=== PATIENT | female | born 1935 | race Two or more races ===

== ENCOUNTER 2016-12-02 08:05 | Inpatient (IN) | payer OTHER ==
[~2016-12-02] VITALS: Ht 144.8 cm; Wt 45.4 kg
[2016-12-02] MEDS ORDERED: NS 1000ml 1,400 ML IVLG ONE (08:15)
--- NOTE | 2016-12-02 08:26 | Emergency Room Report ---
History of Present Illness General Chief Complaint: Altered Level of Consciousness Source: Medical Record, EMS, PMD Present Illness HPI 81 YOF BIBEMS from SNF for AMS. Fever at SNF. On trach collar 10L per EMS at SNF. Not hypoxic or hypotensive. 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 Allergies: Coded Allergies: NO KNOWN DRUG ALLERGIES (Verified Allergy, Unknown, 12/02/16) Patient History Past Medical History: DM Past Surgical History: unable to obtain Pertinent Family History: unable to obtain Social History: Denies: alcohol use, drug use, smoking Now: No Immunizations: UTD Reviewed Nursing Documentation: PMH: Agreed, PSxH: Agreed Review of Systems All Other Systems: limited - unable to provide, AMS Physical Exam Vital Signs Date Time Temp Pulse Resp B/P Pulse Ox O2 Delivery O2 Flow Rate FiO2 12/02/16 08:03 101.3 145 24 124/46 93 Trach Collar 5.0 Sp02 EP Interpretation: reviewed, abnormal General Appearance: normal inspection, no apparent distress, cachetic, lethargic, Chronically Ill Head: normocephalic, atraumatic Eyes: bilateral eye EOMI, bilateral eye PERRL ENT: normal ENT inspection, normal pharynx, no angioedema, normal voice Neck: other - Trach collar in place; no air leak. No mucous plugs Respiratory: normal inspection, no respiratory distress, no retraction, no accessory muscle use, no wheezing, crackles Cardiovascular #1: normal peripheral pulses, regular rate, rhythm, no edema, tachycardia Gastrointestinal: normal inspection, normal bowel sounds, non tender, soft, no guarding, no hernia Genitourinary: no CVA tenderness Musculoskeletal: normal inspection, back normal, normal range of motion, Elida' s Sign negative Neurologic: normal inspection, alert, other - Patient intermittently opens eyes but not to command, squeezes right hand on command. Falling to left side in stretcher. Psychiatric: normal inspection Skin: other - breakdown, dry Lymphatic: normal inspection Medical Decision Making Medicare Attestation I Nik Gonzales MD hereby attest that the medical record entry for date of service, 06/05/16 accurately reflects signatures/notations that I made in my capacity as MD when I treated/diagnosed the above listed Medicare beneficiary. I attest that this information is true, accurate and complete to the best of my knowledge. I understand that any falsification, omission, or concealment of material fact may subject me to administrative, civil, or criminal liability. This patient warrants hospital admission for extreme of age and has a condition that cannot be treated as outpatient. Diagnostic Impression: Primary Impression: Altered level of consciousness Additional Impressions: Sepsis Qualified Codes: A41.9 - Sepsis, unspecified organism Pneumonia Qualified Codes: J18.1 - Lobar pneumonia, unspecified organism UTI (urinary tract infection) Qualified Codes: N30.00 - Acute cystitis without hematuria ER Course Altered mental status - Likely d/t infection - SIRS criteria - febrile, tachycardia. - Labs: Leuks 12K. Lactate 2.7. UA also with many WBCs. - Likely source is left sided rhonchi, PNA seen on CXR - Empiric Abx given along with initial bolus 30cc/kg and GA Tylenol - Improved mental status. Moving all extremities, responsive, interacting more - Reviewed chart, patient gets Q6 metoprolol per Gtube. Dose ordered in ED after BP stabilized. Endorsed to Dr Catalan for tele admission at 930am EKG Diagnostic Results Rate: tachycardiac Rhythm: NSR ST Segments: no acute changes ASA given to the pt in ED: No Rhythm Strip Diag. Results EP Interpretation: yes Rate: 148 Rhythm: NSR, no ectopy, other - Multiple PVCS Chest X-Ray Diagnostic Results EP Interpretation: Yes Findings: no pneumothorax, no acute cardiopulmonary disease, other - Left sided PNA Number of Views: 1 Last Vital Signs Date Time Temp Pulse Resp B/P Pulse Ox O2 Delivery O2 Flow Rate FiO2 12/02/16 08:03 101.3 145 24 124/46 93 Trach Collar 5.0 Status: improved Disposition: ADMITTED INPATIENT Condition: Serious NIK GONZALES M.D. Dec 02, 2016 08:26
[2016-12-02 08:28] VITALS: BP 106/48
[2016-12-02] MEDS ORDERED: Acetaminophen 650 MG SUPP RECTAL ONE (08:30)
[2016-12-02] MEDS ORDERED: FLEET ENEMA133 M1 RC (09:00)
[2016-12-02] MEDS ORDERED: FAMOTIDINE20 MG ORAL (09:00)
[2016-12-02] MEDS ORDERED: LEVOTHYROXINE25 MCG GT (09:00)
[2016-12-02] MEDS ORDERED: LOVENOX10 M4 SUBQ (09:00)
[2016-12-02] MEDS ORDERED: LEVETIRACETAM500 MG GT (09:00)
[2016-12-02] MEDS ORDERED: METOPROLOL TART25 MG GT (09:00)
[2016-12-02] MEDS ORDERED: ZINC SULFATE220 M1 GT (09:00)
[2016-12-02] MEDS ORDERED: JANUVIA50 MG GT (09:00)
[2016-12-02] MEDS ORDERED: VITAMIN C500 M1 GT (09:00)
[2016-12-02] MEDS ORDERED: DULCOLAX10 MG RC (09:00)
[2016-12-02] MEDS ORDERED: UTI-STAT L3875 MG/31 GT (09:00)
[2016-12-02] MEDS ORDERED: COLACE100 MG GT (09:00)
[2016-12-02] MEDS ORDERED: PROMOD946 ML GT (09:00)
[2016-12-02] MEDS ORDERED: MILK OF MA400 MG/51 GT (09:00)
[2016-12-02] MEDS ORDERED: ACETAMINOP160 MG/5 M GT (09:00)
[2016-12-02 09:12] LABS: MEAN CORPUSCULAR HGB CONC 32.2 G/DL (32.0-36.0); MEAN CORPUSCULAR VOLUME 87 FL (80-99); MEAN PLATELET VOLUME 7.9 FL (6.5-10.1); PLATELET COUNT 697 K/UL (150-450); RED BLOOD COUNT 2.93 M/UL (4.20-5.40); RED CELL DISTRIBUTION WIDTH 14.9 % (11.6-14.8); WHITE BLOOD COUNT 12.8 K/UL (4.8-10.8)
[2016-12-02 09:17] LABS: ALANINE AMINOTRANSFERASE 11 U/L (3-33); ALBUMIN/GLOBULIN RATIO 0.6 (1.0-2.7); ANION GAP 14 (5-15); ASPARTATE AMINO TRANSFERASE 16 U/L (5-40); CALCIUM 8.4 mg/dL (8.6-10.2); CARBON DIOXIDE 30 mEQ/L (20-30); CHLORIDE 91 mEQ/L (98-107); CREATININE 0.4 mg/dL (0.5-0.9); HEMOLYSIS 0; POTASSIUM 3.7 mEQ/L (3.4-4.9); SODIUM 135 mEQ/L (135-145); TOTAL PROTEIN 6.5 g/dL (6.6-8.7)
[2016-12-02 09:20] LABS: REFLEX LACTIC ACID YES OR NO YES
[2016-12-02 09:24] LABS: APPEARANCE,URINE SLIGHTLY CLOUDY; KETONES,URINE NEGATIVE (NEGATIVE); LEUKOCYTE ESTERASE ,URINE 2+ (NEGATIVE); NITRITE,URINE NEGATIVE (NEGATIVE); PH,URINE 6.5 (4.5-8.0); PROTEIN,URINE 3+ (NEGATIVE); UROBILINOGEN,URINE NORMAL MG/DL (0.0-1.0)
[2016-12-02 09:27] LABS: CKMB 1.7 ng/mL (< 3.8); TROPONIN I < 0.30 ng/mL (<=0.30)
[2016-12-02] MEDS ORDERED: Metoprolol 25mg tab ORAL ONE (09:30)
[2016-12-02 09:35] LABS: BACTERIA,URINE MODERATE /HPF; SQUAMOUS EPITHELIAL CELL,UR MODERATE /LPF (NONE/OCC); WBC,URINE 20-30 /HPF (0 - 2)
[2016-12-02 09:36] LABS: AMORPHOUS SEDIMENT,UR MODERATE /LPF; ICTOTEST NEGATIVE
[2016-12-02 10:09] VITALS: BP 104/46
--- NOTE | 2016-12-02 10:21 | History & Physical ---
History and Physical History & Physicial 81 year old female presents with tachycardia and elevated WBC. Patient admitted for possible sepsis. Patient unable to give any history. Chart reviewed in detail PMH SDH hypothyroid GERD Trach GT Chronic encephalopathy MEDS noted Allergies noted Social History SNF patient; bed bound Physical Exam WDWN NAD chronically ill clear breath sounds bilaterally without rhonchi or wheeze [id number] without MRG NABS nontender no HSM; GT trach no CCE nonfocal decub Laboratory Tests Test 12/02/16 08:37 12/02/16 09:00 White Blood Count 12.8 K/UL (4.8-10.8) H Red Blood Count 2.93 M/UL (4.20-5.40) L Hemoglobin 8.2 G/DL (12.0-16.0) L Hematocrit 25.5 % (37.0-47.0) L Mean Corpuscular Volume 87 FL (80-99) Mean Corpuscular Hemoglobin 28.0 PG (27.0-31.0) Mean Corpuscular Hemoglobin Concent 32.2 G/DL (32.0-36.0) Red Cell Distribution Width 14.9 % (11.6-14.8) H Platelet Count 697 K/UL (150-450) H Mean Platelet Volume 7.9 FL (6.5-10.1) Neutrophils (%) (Auto) % (45.0-75.0) Lymphocytes (%) (Auto) % (20.0-45.0) Monocytes (%) (Auto) % (1.0-10.0) Eosinophils (%) (Auto) % (0.0-3.0) Basophils (%) (Auto) % (0.0-2.0) Neutrophils % (Manual) Pending Lymphocytes % (Manual) Pending Platelet Estimate Pending Platelet Morphology Pending Sodium Level 135 mEQ/L (135-145) Potassium Level 3.7 mEQ/L (3.4-4.9) Chloride Level 91 mEQ/L (98-107) L Carbon Dioxide Level 30 mEQ/L (20-30) Anion Gap 14 (5-15) Blood Urea Nitrogen 21 mg/dL (7-23) Creatinine 0.4 mg/dL (0.5-0.9) L Estimat Glomerular Filtration Rate mL/min (>60) Glucose Level 123 mg/dL (74-106) H Lactic Acid Level 2.70 mmol/L (0.66-2.22) H Calcium Level 8.4 mg/dL (8.6-10.2) L Total Bilirubin 0.4 mg/dL (0.0-1.2) Aspartate Amino Transf (AST/SGOT) 16 U/L (5-40) Alanine Aminotransferase (ALT/SGPT) 11 U/L (3-33) Alkaline Phosphatase 122 U/L (35-104) H Total Creatine Kinase 37 U/L (26-140) Creatine Kinase MB 1.7 ng/mL (< 3.8) Creatine Kinase MB Relative Index 4.5 Troponin I < 0.30 ng/mL (<=0.30) Pro-B-Type Natriuretic Peptide 764 pg/mL (0-450) H Total Protein 6.5 g/dL (6.6-8.7) L Albumin 2.5 g/dL (3.5-5.2) L Globulin 4.0 g/dL Albumin/Globulin Ratio 0.6 (1.0-2.7) L Urine Color Gertrude Urine Appearance Slightly cloudy Urine pH 6.5 (4.5-8.0) Urine Specific [place] 1.015 (1.005-1.035) Urine Protein 3+ (NEGATIVE) H Urine Glucose (UA) Negative (NEGATIVE) Urine Ketones Negative (NEGATIVE) Urine Occult Blood 3+ (NEGATIVE) H Urine Nitrite Negative (NEGATIVE) Urine Bilirubin Negative (NEGATIVE) Urine Ictotest Negative Urine Urobilinogen Normal MG/DL (0.0-1.0) Urine Leukocyte Esterase 2+ (NEGATIVE) H Urine RBC 5-10 /HPF (0 - 2) H Urine WBC 20-30 /HPF (0 - 2) H Urine Squamous Epithelial Cells Moderate /LPF (NONE/OCC) H Urine Amorphous Sediment Moderate /LPF (NONE) H Urine Bacteria Moderate /HPF (NONE) H IMPRESSION possible sepsis leukocytosis ALOC chronic encephalopathy Chronic respiratory Pressure ulcer PLAN care noted IV antibiotics wound care oxygen therapy nutrition stabilize and dc to SNF when stable impression, plan, and exam edited and reviewed in detail care discussed with HARIS ARANGO Dec 02, 2016 10:21
--- NOTE | 2016-12-02 10:32 | Diagnostic Imaging Report ---
Indication: Dyspnea Comparison: None A single view chest radiograph was obtained. Findings: Peribronchial cuffing, prominent pulmonary vascularity and interstitium with some mild volar or space disease noted centrally within both lungs consistent with pulmonary edema. Hazy basilar opacities enlarged heart noted. Bones are osteopenic. IVC filter noted. Impression: Pulmonary edema
[2016-12-02 10:40] LABS: BAND NEUTROPHILS % (MANUAL) 10 % (0-8); BASOPHILS % (MANUAL) 0 % (0-2); EOSINOPHILS % (MANUAL) 0 % (0-3); LYMPHOCYTES % (MANUAL) 16 % (20-45); NEUTROPHILS % (MANUAL) 73 % (45-75); PLATELET ESTIMATE INCREASED; TOTAL CELLS COUNTED 100
[2016-12-02 10:41] LABS: ANISOCYTOSIS 1+; HYPOCHROMASIA 1+; PLATELET MORPHOLOGY NORMAL
[2016-12-02 11:42] VITALS: BP 91/39
[2016-12-02 11:58] LABS: REFLEX LACTIC ACID YES OR NO YES
[2016-12-02 12:55] VITALS: BP 89/51
[2016-12-02 15:57] VITALS: BP 94/54
[2016-12-02] MEDS ORDERED: Fleet's Enema 133ml RECTAL PRN (16:00)
[2016-12-02] MEDS ORDERED: Vancomycin 750mg/D5W 275ml IVPB ONE ×2 (18:00)
[2016-12-02 20:00] VITALS: BP 103/57
[2016-12-02] MEDS ORDERED: Heparin 5000 units/ml inj SUBQ SCH (21:00)
[2016-12-02] MEDS: Metoprolol 25mg tab GT SCH (21:00)
[2016-12-02] MEDS: levETIRAcetam 500mg/5ml Liquid GT SCH (21:09)
[2016-12-02] MEDS: Piperacillin/Tazobactam 3.375 GM in D5W 110 ML IVPB SCH (23:03)
[2016-12-03 00:31] VITALS: BP 108/55
[2016-12-03 03:47] VITALS: BP 122/58
[2016-12-03] MEDS: Piperacillin/Tazobactam 3.375 GM in D5W 110 ML IVPB SCH ×3 (05:04→21:47)
[2016-12-03 07:16] LABS: MEAN CORPUSCULAR HEMOGLOBIN 28.8 PG (27.0-31.0); MEAN CORPUSCULAR HGB CONC 33.4 G/DL (32.0-36.0); MEAN CORPUSCULAR VOLUME 86 FL (80-99); MEAN PLATELET VOLUME 8.3 FL (6.5-10.1); PLATELET COUNT 567 K/UL (150-450); RED BLOOD COUNT 2.51 M/UL (4.20-5.40); RED CELL DISTRIBUTION WIDTH 15.2 % (11.6-14.8); WHITE BLOOD COUNT 18.2 K/UL (4.8-10.8)
[2016-12-03 07:33] LABS: ANION GAP 13 (5-15); CALCIUM 8.1 mg/dL (8.6-10.2); CARBON DIOXIDE 26 mEQ/L (20-30); CHLORIDE 97 mEQ/L (98-107); CREATININE 0.3 mg/dL (0.5-0.9); HEMOLYSIS 1; POTASSIUM 3.1 mEQ/L (3.4-4.9); SODIUM 136 mEQ/L (135-145)
[2016-12-03 07:47] VITALS: BP 119/57
--- NOTE | 2016-12-03 08:50 | General Progress Note ---
Assessment/Plan Assessment/Plan IMPRESSION possible sepsis leukocytosis ALOC chronic encephalopathy Chronic respiratory Pressure ulcer tachycardia PLAN care noted IV antibiotics add amikacin transfuse replace K wound care oxygen therapy nutrition stabilize and dc to SNF when stable impression, plan, and exam edited and reviewed in detail care discussed with RN Subjective Allergies: Coded Allergies: NO KNOWN DRUG ALLERGIES (Verified Allergy, Unknown, 12/02/16) Subjective anemic tachycardic Objective Last 24 Hour Vital Signs Date Time Temp Pulse Resp B/P Pulse Ox O2 Delivery O2 Flow Rate FiO2 12/03/16 07:47 99.7 125 22 119/57 94 Trach Collar 6.0 12/03/16 07:45 T-piece 6.0 35 12/03/16 04:00 135 12/03/16 03:47 97.7 135 20 122/58 91 Trach Collar 12/03/16 00:31 97.2 104 18 108/55 94 Trach Collar 12/03/16 00:00 131 12/02/16 23:38 98 T-piece 6.0 35 12/02/16 23:38 T-piece 6.0 35 12/02/16 21:00 121 103/57 12/02/16 20:00 125 12/02/16 20:00 97.7 121 18 103/57 97 T-piece 5.0 12/02/16 16:00 109 12/02/16 15:57 97.7 111 26 94/54 100 T-piece 5.0 12/02/16 12:55 98.2 110 24 89/51 100 T-piece 5.0 12/02/16 12:49 112 12/02/16 12:12 110 26 95/42 100 T-piece 5.0 12/02/16 11:42 98.3 111 26 91/39 98 T-piece 5.0 12/02/16 10:09 101.2 119 31 104/46 96 T-piece 5.0 12/02/16 10:09 101.2 12/02/16 09:44 141 127/49 Intake and Output 12/02/16 12/03/16 19:00 07:00 Intake Total 1670 ml 1000 ml Output Total 230 ml 300 ml Balance 1440 ml 700 ml Intake Free Water 120 ml IV Total 1550 ml 1000 ml Output Urine Total 230 ml 300 ml # Bowel Movements 5 Laboratory Tests 12/02/16 09:00: Urine Color Gertrude, Urine Appearance Slightly cloudy, Urine pH 6.5, Urine Specific [place] 1.015, Urine Protein 3+H, Urine Glucose (UA) Negative, Urine Ketones Negative, Urine Occult Blood 3+H, Urine Nitrite Negative, Urine Bilirubin Negative, Urine Ictotest Negative, Urine Urobilinogen Normal, Urine Leukocyte Esterase 2+H, Urine RBC 5-10H, Urine WBC 20-30H, Urine Squamous Epithelial Cells ModerateH, Urine Amorphous Sediment ModerateH, Urine Bacteria ModerateH 12/02/16 11:20: Lactic Acid Level 2.40H 12/03/16 05:45: White Blood Count 18.2H, Red Blood Count 2.51L, Hemoglobin 7.2L, Hematocrit 21.6L, Mean Corpuscular Volume 86, Mean Corpuscular Hemoglobin 28.8, Mean Corpuscular Hemoglobin Concent 33.4, Red Cell Distribution Width 15.2H, Platelet Count 567H, Mean Platelet Volume 8.3, Neutrophils (%) (Auto) , Lymphocytes (%) (Auto) , Monocytes (%) (Auto) , Eosinophils (%) (Auto) , Basophils (%) (Auto) , Neutrophils % (Manual) [Pending], Lymphocytes % (Manual) [Pending], Platelet Estimate [Pending], Platelet Morphology [Pending], Sodium Level 136, Potassium Level 3.1L, Chloride Level 97L, Carbon Dioxide Level 26, Anion Gap 13, Blood Urea Nitrogen 15, Creatinine 0.3L, Estimat Glomerular Filtration Rate , Glucose Level 142H, Calcium Level 8.1L Height (Feet): 4 Height (Inches): 9.00 Weight (Pounds): 100 Objective WDWN poor LOc clear breath sounds bilaterally without rhonchi or wheeze S1S2 tachy RR without MRG NABS nontender no HSM; GT no CCE nonfocal decub HARIS ACEVEDO Dec 03, 2016 08:50
[2016-12-03] MEDS ORDERED: KCl 10% 40mEq/30ml liquid GT ONE (09:00)
[2016-12-03] MEDS ORDERED: Amikacin Rx to dose MISC PRN (09:00)
[2016-12-03] MEDS ORDERED: Metoprolol 25mg tab GT SCH (09:00)
[2016-12-03] MEDS: Milk of Magnesia 30ml Ud GT SCH (09:00)
[2016-12-03] MEDS: sitaGLIPtin 50mg tab GT SCH (09:18)
[2016-12-03] MEDS: levETIRAcetam 500mg/5ml Liquid GT SCH ×2 (09:18→21:49)
[2016-12-03] MEDS: Docusate 100mg/10ml Liq ORAL SCH (09:18)
[2016-12-03] MEDS: Ascorbic Acid 500mg tab GT SCH (09:19)
[2016-12-03] MEDS: Zinc Sulfate 220mg cap GT SCH (09:19)
[2016-12-03] MEDS: Levothyroxine 25mcg tab GT SCH (09:19)
[2016-12-03] MEDS: Enoxaparin 30mg Inj SUBQ SCH (09:20)
[2016-12-03] MEDS: Metoprolol 25mg tab GT SCH ×4 (10:26→21:49)
[2016-12-03 10:42] LABS: BAND NEUTROPHILS % (MANUAL) 30 % (0-8); BASOPHILS % (MANUAL) 0 % (0-2); EOSINOPHILS % (MANUAL) 1 % (0-3); LYMPHOCYTES % (MANUAL) 10 % (20-45); NEUTROPHILS % (MANUAL) 57 % (45-75); PLATELET ESTIMATE INCREASED; PLATELET MORPHOLOGY NORMAL; TOTAL CELLS COUNTED 100
[2016-12-03 10:43] LABS: ANISOCYTOSIS 2+; HYPOCHROMASIA 2+
[2016-12-03] MEDS ORDERED: AMIKACIN IV ONE (11:00)
[2016-12-03] MEDS ORDERED: NS IV ONE (11:00)
[2016-12-03 11:19] VITALS: BP 117/66
--- NOTE | 2016-12-03 11:51 | Diagnostic Imaging Report ---
Indication: Dyspnea Comparison: 12/02/16 A single view chest radiograph was obtained. Findings: There are bilateral pleural effusions present. There is interstitial edema and cardiomegaly present. Bones are osteopenic. Tracheostomy noted. Impression: Pulmonary edema and bilateral pleural effusions
[2016-12-03 15:23] VITALS: BP 135/65
[2016-12-03] MEDS: Vancomycin 500mg/D5W 110ml IVPB SCH ×2 (18:00)
[2016-12-03 21:22] VITALS: BP 123/71
[2016-12-04] VITALS: BP 126/72
[2016-12-04 04:00] VITALS: BP 144/81
[2016-12-04] MEDS: Piperacillin/Tazobactam 3.375 GM in D5W 110 ML IVPB SCH ×3 (06:00→22:00)
[2016-12-04 08:00] VITALS: BP 140/72
[2016-12-04 08:07] LABS: MEAN CORPUSCULAR HEMOGLOBIN 28.3 PG (27.0-31.0); MEAN CORPUSCULAR HGB CONC 33.6 G/DL (32.0-36.0); MEAN CORPUSCULAR VOLUME 84 FL (80-99); MEAN PLATELET VOLUME 8.1 FL (6.5-10.1); PLATELET COUNT 517 K/UL (150-450); RED CELL DISTRIBUTION WIDTH 14.3 % (11.6-14.8); WHITE BLOOD COUNT 21.6 K/UL (4.8-10.8)
[2016-12-04 08:18] LABS: ANION GAP 13 (5-15); CALCIUM 7.9 mg/dL (8.6-10.2); CARBON DIOXIDE 25 mEQ/L (20-30); CHLORIDE 97 mEQ/L (98-107); CREATININE 0.3 mg/dL (0.5-0.9); HEMOLYSIS 0; POTASSIUM 3.4 mEQ/L (3.4-4.9); SODIUM 135 mEQ/L (135-145)
--- NOTE | 2016-12-04 08:45 | General Progress Note ---
Assessment/Plan Assessment/Plan IMPRESSION possible sepsis leukocytosis ALOC chronic encephalopathy Chronic respiratory Pressure ulcer tachycardia PLAN care noted IV antibiotics ID evaluation added amikacin and sensitive transfused replaced K wound care oxygen therapy nutrition stabilize and dc to SNF when stable impression, plan, and exam edited and reviewed in detail care discussed with RN Subjective Allergies: Coded Allergies: NO KNOWN DRUG ALLERGIES (Verified Allergy, Unknown, 12/02/16) Subjective anemic tachycardic leukocytosis Objective Last 24 Hour Vital Signs Date Time Temp Pulse Resp B/P Pulse Ox O2 Delivery O2 Flow Rate FiO2 12/04/16 04:00 122 12/04/16 04:00 97.3 125 20 144/81 94 T-piece 8.0 30 12/04/16 01:30 93 T-piece 8.0 30 12/04/16 01:30 T-piece 8.0 30 12/04/16 00:00 123 12/04/16 00:00 98.6 117 20 126/72 91 Trach Collar 6.0 35 12/03/16 21:49 129 123/71 12/03/16 21:22 99.0 129 20 123/71 91 Trach Collar 6.0 35 12/03/16 20:00 127 12/03/16 19:30 130 20 T-piece 8.0 30 12/03/16 19:30 92 T-piece 8.0 30 12/03/16 19:30 T-piece 8.0 30 12/03/16 16:00 109 12/03/16 15:23 99.1 107 21 135/65 93 Trach Collar 12/03/16 15:05 T-piece 6.0 35 12/03/16 12:00 108 12/03/16 11:19 99.7 105 22 117/66 95 Trach Collar 12/03/16 10:26 128 119/65 Intake and Output 12/03/16 12/04/16 19:00 07:00 Intake Total 700 ml Output Total 350 ml Balance 350 ml IV Total 700 ml Output Urine Total 350 ml # Bowel Movements 1 Laboratory Tests 12/04/16 00:30: Random Amikacin Level 1.6 12/04/16 07:15: White Blood Count 21.6H, Red Blood Count 3.90L, Hemoglobin 11.0#L, Hematocrit 32.9#L, Mean Corpuscular Volume 84, Mean Corpuscular Hemoglobin 28.3, Mean Corpuscular Hemoglobin Concent 33.6, Red Cell Distribution Width 14.3, Platelet Count 517H, Mean Platelet Volume 8.1, Neutrophils (%) (Auto) , Lymphocytes (%) ( Auto) , Monocytes (%) (Auto) , Eosinophils (%) (Auto) , Basophils (%) (Auto) , Neutrophils % (Manual) [Pending], Lymphocytes % (Manual) [Pending], Platelet Estimate [Pending], Platelet Morphology [Pending], Sodium Level 135, Potassium Level 3.4, Chloride Level 97L, Carbon Dioxide Level 25, Anion Gap 13, Blood Urea Nitrogen 9, Creatinine 0.3L, Estimat Glomerular Filtration Rate , Glucose Level 175H, Calcium Level 7.9L Height (Feet): 4 Height (Inches): 9.00 Weight (Pounds): 100 Objective WDWN poor LOc clear breath sounds bilaterally without rhonchi or wheeze S1S2 tachy RR without MRG NABS nontender no HSM; GT no CCE nonfocal decub HARIS ACEVEDO Dec 04, 2016 08:44
[2016-12-04] MEDS: Metoprolol 25mg tab GT SCH ×2 (09:31→21:20)
[2016-12-04] MEDS: Zinc Sulfate 220mg cap GT SCH (09:31)
[2016-12-04] MEDS: sitaGLIPtin 50mg tab GT SCH (09:31)
[2016-12-04] MEDS: Levothyroxine 25mcg tab GT SCH (09:31)
[2016-12-04] MEDS: levETIRAcetam 500mg/5ml Liquid GT SCH ×2 (09:32→21:20)
[2016-12-04] MEDS: Milk of Magnesia 30ml Ud GT SCH (09:32)
[2016-12-04] MEDS: Ascorbic Acid 500mg tab GT SCH (09:32)
[2016-12-04] MEDS: Docusate 100mg/10ml Liq ORAL SCH (09:32)
[2016-12-04] MEDS: Enoxaparin 30mg Inj SUBQ SCH (09:33)
[2016-12-04 10:06] LABS: ANISOCYTOSIS 1+; BAND NEUTROPHILS % (MANUAL) 0 % (0-8); BASOPHILS % (MANUAL) 0 % (0-2); EOSINOPHILS % (MANUAL) 0 % (0-3); HYPOCHROMASIA 1+; LYMPHOCYTES % (MANUAL) 8 % (20-45); NEUTROPHILS % (MANUAL) 85 % (45-75); PLATELET ESTIMATE INCREASED; PLATELET MORPHOLOGY NORMAL; TOTAL CELLS COUNTED 100
[2016-12-04 11:00] LABS: OTHERS PATHOLOGIST COMMENT
[2016-12-04] MEDS ORDERED: Sterile Water Irrig 1000ml IRRIG ONE (11:20)
[2016-12-04] MEDS ORDERED: NS 275ml ONE (11:20)
[2016-12-04] MEDS ORDERED: Tubing IV Secondary IV ONE (11:20)
[2016-12-04] MEDS ORDERED: Tubing Blood Filter IV ONE (11:20)
[2016-12-04 11:37] VITALS: BP 140/80
[2016-12-04] MEDS ORDERED: AMIKACIN IV SCH (12:30)
[2016-12-04] MEDS ORDERED: NS IV SCH (12:30)
--- NOTE | 2016-12-04 15:01 | Wound Care Consultation ---
Wound Assessment Wound Assessment #1: Wound Present on Admission: Yes New Wound: No Status Change of Wound: No Wound Location Body Site Modif: mid Wound Location Body Site: sacral Wound Type: pressure ulcer Phil Test: Does not Phil Pressure Ulcer Stage: IV/unstageable Wound Thickness: Full Thickness Wound Length: 4.5 Wound Width: 6.5 Wound Depth: utd Percent of Wound [place]/Red: 20 Percent of Wound Bed Yellow/Wh: 80 Wound Drainage Amount: Moderate Wound Drainage Odor: None/Absent Tissue Surrounding Wound: Macerated Wound General Appearance: Reddened, Draining, Necrotic Wound Assessment #2: Wound Number: #2 Wound Present on Admission: Yes New Wound: No Status Change of Wound: No Wound Location Body Site Modif: mid Wound Location Body Site: other - spine Wound Type: pressure ulcer Phil Test: Does not Phil Pressure Ulcer Stage: IV/unstageable Wound Thickness: Full Thickness Wound Length: 2.5 Wound Width: 2.5 Wound Depth: utd Percent of Wound [place]/Red: 50 Percent of Wound Bed Yellow/Wh: 50 Wound Drainage Description: Serosanguineous Wound Drainage Amount: Moderate Wound Drainage Odor: None/Absent Tissue Surrounding Wound: Macerated Wound General Appearance: Reddened, Draining Wound Comment #1 Sacral unstageable pressure ulcer with yellow slough adhered to wound bed #2 Mid spine unstageable pressure ulcer with yellow slough adhered to wound bed Recommendation -Sacral and mid spine pressure ulcers Cleanse with saline, pat dry, apply Therahoney gel to wound bed, apply Triad cream to mazin wound area, cover with Biatain silicone daily and PRN soiled/ dislodged -Low air loss mattress -Keep clean and dry -Turn and reposition -Optimize nutrition -Offload both heels -Heel protector on both heels -Assess and F/u accordingly for any changes CEDRIC HIDALGO RN Dec 04, 2016 15:01
[2016-12-04 16:00] VITALS: BP 138/86
[2016-12-04] MEDS: Vancomycin 500mg/D5W 110ml IVPB SCH ×2 (17:55)
[2016-12-04 20:00] VITALS: BP 158/85
[2016-12-04] MEDS ORDERED: Vancomycin 500mg/D5W 110ml IVPB ONE ×2 (20:00)
[2016-12-04] MEDS: Acetaminophen 650mg/20.3ml GT PRN (21:21)
[2016-12-05] VITALS (9 sets, daily range): BP systolic 117–159; BP diastolic 71–106
--- NOTE | 2016-12-05 00:45 | Consultation ---
DATE OF CONSULTATION: 12/04/2016 NOTE: POOR AUDIO INFECTIOUS DISEASE CONSULTATION This consult is for coverage of Dr. Stringer. PRIMARY ATTENDING PHYSICIAN: Dr. Santos Catalan. REASON FOR CONSULT: Sepsis and UTI. HISTORY OF PRESENT ILLNESS: The patient is an 81-year-old female admitted on 12/02/2016 from a [place] [facility] facility because of altered mental status, had tachycardia, leukocytosis, and fever. At the time of admission, had temperature of 104.3 degrees. The patient is not a historian. PAST MEDICAL HISTORY: Significant for hypothyroidism. The patient is status post fall and has history of subdural hemorrhage. She had tracheostomy, anemia, sacral pressure ulcer, epilepsy, status post G-tube placement. MEDICATIONS: Amikacin, vancomycin, metoprolol, vitamin C, Colace, Lovenox,Zosyn, Januvia, Zinc, Zosyn, Keppra, Ambien, sodium chloride, Mylanta, and bisacodyl. ALLERGIES: No known drug allergy. SOCIAL HISTORY: She lives in a nursing facility with poor mental and functional status per son. REVIEW OF SYSTEMS: Unobtainable. PHYSICAL EXAMINATION: GENERAL APPEARANCE: The patient seems to be thin. VITAL SIGNS: Temperature is 96.4 degrees, T-max at the time of admission is 104.3 degrees, pulse 66, and blood pressure 140/72. HEAD AND NECK: Status post tracheostomy. Tucker conjunctivae. HEART: Regular. Normal rate. LUNGS: Bilateral rhonchi. The patient is on T bar. ABDOMEN: Soft. s/p GT. EXTREMITIES: She has no edema. She has muscle atrophy. LABORATORY AND DIAGNOSTIC DATA: WBC going up, hemoglobin 11, hematocrit 32.9 and platelets 517,000. Sodium 135, potassium 3.4, chloride 97, bicarbonate 25, BUN 9, creatinine 0.6, and glucose is 175. Lactic acid is 2.4. VRE screen is positive. Influenza test is negative. Blood culture x2 negative. Urine culture grew Klebsiella pneumoniae and other gram-negative rods. Urinalysis showed WBC of 20 to 30, RBC of 5 to 10, protein 3+, nitrite negative. IMPRESSION: 1. Sepsis with high fever, leukocytosis, and tachycardia. Fever and tachycardia, which are resolved. Second source of infection seems to be urinary tract infection. The patient has chronic Thompson catheter. sacral pressure ulcer. 2. Encephalopathy. 3. Vancomycin-resistant enterococci colonization. 4. Anemia, had blood transfusion. 5. History of subdural hematoma. 6. Bilateral effusion and pulmonary edema on chest x-ray. RECOMMENDATION: We will continue with vancomycin and Zosyn. We will start amikacin. We will follow up the cultures. I thank Dr. Catalan for involving me in the care of this patient. Patric Adams M.D. DR: SANTIAGO JOB#: [id number] CC: RADHA
[2016-12-05] MEDS: Zolpidem 5mg tab ORAL PRN ×2 (01:59→22:11)
[2016-12-05] MEDS: Piperacillin/Tazobactam 3.375 GM in D5W 110 ML IVPB SCH ×3 (05:59→23:00)
[2016-12-05 08:11] LABS: MEAN CORPUSCULAR HEMOGLOBIN 27.9 PG (27.0-31.0); MEAN CORPUSCULAR VOLUME 84 FL (80-99); MEAN PLATELET VOLUME 8.3 FL (6.5-10.1); PLATELET COUNT 566 K/UL (150-450); RED BLOOD COUNT 4.35 M/UL (4.20-5.40); RED CELL DISTRIBUTION WIDTH 14.5 % (11.6-14.8)
[2016-12-05 08:17] LABS: WHITE BLOOD COUNT 26.2 K/UL (4.8-10.8)
[2016-12-05 08:30] LABS: ANION GAP 14 (5-15); CALCIUM 8.1 mg/dL (8.6-10.2); CARBON DIOXIDE 28 mEQ/L (20-30); CHLORIDE 97 mEQ/L (98-107); CREATININE 0.3 mg/dL (0.5-0.9); HEMOLYSIS 0; POTASSIUM 3.1 mEQ/L (3.4-4.9); SODIUM 139 mEQ/L (135-145)
--- NOTE | 2016-12-05 08:31 | General Progress Note ---
Assessment/Plan Assessment/Plan IMPRESSION possible sepsis leukocytosis ALOC chronic encephalopathy Chronic respiratory Pressure ulcer tachycardia PLAN care noted DNR IV antibiotics ID evaluation noted added amikacin start digoxin wound care oxygen therapy nutrition stabilize and dc to SNF when stable impression, plan, and exam edited and reviewed in detail care discussed with RN Subjective ROS Limited/Unobtainable: Yes Allergies: Coded Allergies: NO KNOWN DRUG ALLERGIES (Verified Allergy, Unknown, 12/02/16) Subjective d/w family confirmed DNR aware of poor prognosis Objective Last 24 Hour Vital Signs Date Time Temp Pulse Resp B/P Pulse Ox O2 Delivery O2 Flow Rate FiO2 12/05/16 07:55 T-piece 10.0 40 12/05/16 07:54 94 T-piece 10.0 40 12/05/16 07:51 138 25 T-piece 10.0 40 12/05/16 04:00 117 12/05/16 04:00 97.9 100 20 122/75 94 Mechanical Ventilator 12/05/16 01:00 T-piece 10.0 35 12/05/16 00:59 95 T-piece 10.0 35 12/05/16 00:00 101 12/05/16 00:00 97.5 101 20 120/71 100 T-piece 10.0 35 12/04/16 21:20 133 158/85 12/04/16 20:00 98.1 133 20 158/85 100 12/04/16 20:00 133 12/04/16 19:30 120 20 T-piece 10.0 35 12/04/16 19:30 94 T-piece 10.0 35 12/04/16 19:30 T-piece 10.0 35 12/04/16 16:00 97.8 112 23 138/86 T-piece 40 12/04/16 16:00 127 12/04/16 13:04 96 T-piece 8.0 40 12/04/16 13:04 T-piece 8.0 40 12/04/16 12:00 112 12/04/16 11:37 98.2 111 22 140/80 96 T-piece 40 12/04/16 09:31 66 140/72 12/04/16 08:50 T-piece 8.0 40 12/04/16 08:49 94 T-piece 8.0 40 12/04/16 08:49 66 24 T-piece 8.0 40 Intake and Output 12/04/16 12/05/16 19:00 07:00 Intake Total 2222.5 ml 447.5 ml Output Total 1200 ml 1600 ml Balance 1022.5 ml -1152.5 ml Intake Free Water 120 ml IV Total 1502.5 ml 447.5 ml Tube Feeding 600 ml Output Urine Total 1200 ml 1600 ml # Bowel Movements 2 Laboratory Tests 12/04/16 17:00: Vancomycin Level Trough < 2.0L 12/05/16 07:40: White Blood Count 26.2*H, Red Blood Count 4.35, Hemoglobin 12.1, Hematocrit 36.7L, Mean Corpuscular Volume 84, Mean Corpuscular Hemoglobin 27.9, Mean Corpuscular Hemoglobin Concent 33.0, Red Cell Distribution Width 14.5, Platelet Count 566H, Mean Platelet Volume 8.3, Neutrophils (%) (Auto) , Lymphocytes (%) ( Auto) , Monocytes (%) (Auto) , Eosinophils (%) (Auto) , Basophils (%) (Auto) , Neutrophils % (Manual) [Pending], Lymphocytes % (Manual) [Pending], Platelet Estimate [Pending], Platelet Morphology [Pending], Sodium Level [Pending], Potassium Level [Pending], Chloride Level [Pending], Carbon Dioxide Level [ Pending], Blood Urea Nitrogen [Pending], Creatinine [Pending], Estimat Glomerular Filtration Rate [Pending], Glucose Level [Pending], Calcium Level [ Pending] Height (Feet): 4 Height (Inches): 9.00 Weight (Pounds): 100 Objective WDWN poor LOc reduced breath sounds bilaterally with some rhonchi S1S2 tachy RR without MRG NABS nontender no HSM; GT no CCE nonfocal decub HARIS ACEVEDO Dec 05, 2016 08:31
[2016-12-05] MEDS: Docusate 100mg/10ml Liq ORAL SCH (08:37)
[2016-12-05] MEDS: sitaGLIPtin 50mg tab GT SCH (08:38)
[2016-12-05] MEDS: Zinc Sulfate 220mg cap GT SCH (08:38)
[2016-12-05] MEDS: Metoprolol 25mg tab GT SCH (08:38)
[2016-12-05] MEDS: Levothyroxine 25mcg tab GT SCH (08:38)
[2016-12-05] MEDS: Ascorbic Acid 500mg tab GT SCH (08:38)
[2016-12-05] MEDS: Milk of Magnesia 30ml Ud GT SCH (08:38)
[2016-12-05] MEDS: levETIRAcetam 500mg/5ml Liquid GT SCH ×2 (08:39→21:00)
[2016-12-05] MEDS: Enoxaparin 30mg Inj SUBQ SCH (08:42)
[2016-12-05] MEDS: Digoxin 0.125mg tab ORAL SCH (08:42)
[2016-12-05] MEDS ORDERED: KCl 10% 40mEq/30ml liquid NG ONE (10:00)
[2016-12-05 10:10] LABS: ANISOCYTOSIS 1+; BAND NEUTROPHILS % (MANUAL) 0 % (0-8); BASOPHILS % (MANUAL) 0 % (0-2); EOSINOPHILS % (MANUAL) 0 % (0-3); HYPOCHROMASIA 1+; LYMPHOCYTES % (MANUAL) 7 % (20-45); NEUTROPHILS % (MANUAL) 88 % (45-75); PLATELET ESTIMATE INCREASED; PLATELET MORPHOLOGY NORMAL; TOTAL CELLS COUNTED 100
--- NOTE | 2016-12-05 11:20 | Infectious Diseases Prog Note ---
"Assessment/Plan Assessment/Plan antibiotics : vancomycin iv, zosyn A 1. pneumonia 2. respiratory failure 3. leucocytosis worse 4. e.coli | klebsiella UTI 5. rectal VRE colonization P 1. continue vancomycin iv, zosyn 2. sputum culture 3. stool for c.diff 4. start flagyl Subjective ROS Limited/Unobtainable: Yes Allergies: Coded Allergies: NO KNOWN DRUG ALLERGIES (Verified Allergy, Unknown, 12/02/16) Objective Vital Signs Last 24 Hour Vital Signs Date Time Temp Pulse Resp B/P Pulse Ox O2 Delivery O2 Flow Rate FiO2 12/05/16 08:42 129 12/05/16 08:38 129 151/82 12/05/16 08:00 125 12/05/16 08:00 98.8 129 20 151/82 96 T-piece 12/05/16 07:55 T-piece 10.0 40 12/05/16 07:54 94 T-piece 10.0 40 12/05/16 07:51 138 25 T-piece 10.0 40 12/05/16 04:00 117 12/05/16 04:00 97.9 100 20 122/75 94 Mechanical Ventilator 12/05/16 01:00 T-piece 10.0 35 12/05/16 00:59 95 T-piece 10.0 35 12/05/16 00:00 101 12/05/16 00:00 97.5 101 20 120/71 100 T-piece 10.0 35 12/04/16 21:20 133 158/85 12/04/16 20:00 98.1 133 20 158/85 100 12/04/16 20:00 133 12/04/16 19:30 120 20 T-piece 10.0 35 12/04/16 19:30 94 T-piece 10.0 35 12/04/16 19:30 T-piece 10.0 35 12/04/16 16:00 97.8 112 23 138/86 T-piece 40 12/04/16 16:00 127 12/04/16 13:04 96 T-piece 8.0 40 12/04/16 13:04 T-piece 8.0 40 12/04/16 12:00 112 12/04/16 11:37 98.2 111 22 140/80 96 T-piece 40 Height (Feet): 4 Height (Inches): 9.00 Weight (Pounds): 100 HEENT: status post trach Respiratory/Chest: crackles/rales Cardiovascular: normal rate, regular rhythm, no gallop/murmur Abdomen: soft, non tender, other - GT Extremities: no edema Microbiology Date/Time Source Procedure Growth Status 12/02/16 11:30 Nasal Nares MRSA Culture - Final NO METHICILLIN RESISTANT STAPH AUREUS... Complete 12/02/16 11:30 Rectum VRE Culture - Final Enterococcus Faecalis - Vre Complete Laboratory Tests Test 12/04/16 17:00 12/05/16 07:40 Vancomycin Level Trough < 2.0 ug/mL (5.0-12.0) L White Blood Count 26.2 K/UL (4.8-10.8) *H Red Blood Count 4.35 M/UL (4.20-5.40) Hemoglobin 12.1 G/DL (12.0-16.0) Hematocrit 36.7 % (37.0-47.0) L Mean Corpuscular Volume 84 FL (80-99) Mean Corpuscular Hemoglobin 27.9 PG (27.0-31.0) Mean Corpuscular Hemoglobin Concent 33.0 G/DL (32.0-36.0) Red Cell Distribution Width 14.5 % (11.6-14.8) Platelet Count 566 K/UL (150-450) H Mean Platelet Volume 8.3 FL (6.5-10.1) Neutrophils (%) (Auto) % (45.0-75.0) Lymphocytes (%) (Auto) % (20.0-45.0) Monocytes (%) (Auto) % (1.0-10.0) Eosinophils (%) (Auto) % (0.0-3.0) Basophils (%) (Auto) % (0.0-2.0) Differential Total Cells Counted 100 Neutrophils % (Manual) 88 % (45-75) H Lymphocytes % (Manual) 7 % (20-45) L Monocytes % (Manual) 5 % (1-10) Eosinophils % (Manual) 0 % (0-3) Basophils % (Manual) 0 % (0-2) Band Neutrophils 0 % (0-8) Platelet Estimate Increased H Platelet Morphology Normal Hypochromasia 1+ Anisocytosis 1+ Sodium Level 139 mEQ/L (135-145) Potassium Level 3.1 mEQ/L (3.4-4.9) L Chloride Level 97 mEQ/L (98-107) L Carbon Dioxide Level 28 mEQ/L (20-30) Anion Gap 14 (5-15) Blood Urea Nitrogen 8 mg/dL (7-23) Creatinine 0.3 mg/dL (0.5-0.9) L Estimat Glomerular Filtration Rate mL/min (>60) Glucose Level 187 mg/dL (74-106) H Calcium Level 8.1 mg/dL (8.6-10.2) L SHELLEY JOHNSON Dec 05, 2016 11:20"
[2016-12-05] MEDS: metroNIDAZOLE 500mg tab ORAL SCH ×2 (14:06→22:10)
--- NOTE | 2016-12-05 14:49 | Diagnostic Imaging Report ---
Indication: Altered level of consciousness Technique: Contiguous 5 mm thick transaxial imaging of the head obtained in a Siemens Sensation [address] scanner. Soft tissue and bone windows generated. Total Dose length Product (DLP): [address] Dose Index Volume (CTDIvol): 70.38 mGy Comparison: none Findings: There is a fairly large right frontal craniectomy present. Abnormal low attenuation demonstrated in the right frontal lobe deep to the craniectomy site. This could represent vasogenic edema. Suspected mass present measuring about 2 cm. There are no previous films for comparison. Recommend MRI with gadolinium for further evaluation. There maybe slight compression of the anterior horn of the right lateral ventricle. There is no midline shift. Generalized ventriculomegaly is present. Mild cortical atrophy is noted. There is no acute hemorrhage. Impression: Right craniectomy noted. Suspected underlying vasogenic edema. Possible mass. The findings could all be entirely expected depending on the timing of the previous surgery. Comparison with previous studies is highly recommended. The current interpretation and conclusions fall short without prior studies. At this point, differential considerations include residual or recurrent tumor, postsurgical changes, cerebritis or infection. The CT scanner at [facility] is accredited by the [employer] and the scans are performed using dose optimization techniques as appropriate to a performed exam including Automatic Exposure control.
[2016-12-05] MEDS: Acetaminophen 650mg/20.3ml GT PRN (16:21)
[2016-12-05] MEDS ORDERED: Sterile Water Irrig 1000ml IRRIG ONE (16:36)
[2016-12-05] MEDS ORDERED: Vancomycin 750mg/D5W 275ml IVPB SCH ×2 (20:00)
[2016-12-06] VITALS: BP 128/74
[2016-12-06 04:00] VITALS: BP 128/77
[2016-12-06] MEDS: Piperacillin/Tazobactam 3.375 GM in D5W 110 ML IVPB SCH (05:51)
[2016-12-06] MEDS: metroNIDAZOLE 500mg tab ORAL SCH (05:51)
[2016-12-06 08:05] LABS: MEAN CORPUSCULAR HGB CONC 33.3 G/DL (32.0-36.0); MEAN CORPUSCULAR VOLUME 84 FL (80-99); MEAN PLATELET VOLUME 8.1 FL (6.5-10.1); PLATELET COUNT 533 K/UL (150-450); RED CELL DISTRIBUTION WIDTH 14.5 % (11.6-14.8)
[2016-12-06 08:15] LABS: ANION GAP 8 (5-15); CALCIUM 8.1 mg/dL (8.6-10.2); CARBON DIOXIDE 28 mEQ/L (20-30); CHLORIDE 95 mEQ/L (98-107); CREATININE 0.3 mg/dL (0.5-0.9); HEMOLYSIS 3; POTASSIUM 3.1 mEQ/L (3.4-4.9); SODIUM 131 mEQ/L (135-145)
[2016-12-06 08:17] LABS: WHITE BLOOD COUNT 27.5 K/UL (4.8-10.8)
[2016-12-06 08:26] VITALS: BP 134/82
[2016-12-06] MEDS: Docusate 100mg/10ml Liq ORAL SCH ×2 (08:27→08:35)
[2016-12-06] MEDS: Milk of Magnesia 30ml Ud GT SCH ×2 (08:27→08:35)
[2016-12-06] MEDS: Enoxaparin 30mg Inj SUBQ SCH (08:31)
[2016-12-06] MEDS: Acetaminophen 650mg/20.3ml GT PRN (08:31)
[2016-12-06] MEDS: Ascorbic Acid 500mg tab GT SCH (08:32)
[2016-12-06] MEDS: Levothyroxine 25mcg tab GT SCH (08:32)
[2016-12-06] MEDS: Zinc Sulfate 220mg cap GT SCH (08:32)
[2016-12-06] MEDS: levETIRAcetam 500mg/5ml Liquid GT SCH ×2 (08:32→21:29)
[2016-12-06] MEDS: Digoxin 0.125mg tab ORAL SCH (08:34)
[2016-12-06] MEDS: sitaGLIPtin 50mg tab GT SCH (08:37)
--- NOTE | 2016-12-06 10:15 | Infectious Diseases Prog Note ---
"Assessment/Plan Assessment/Plan antibiotics : vancomycin iv, zosyn, flagyl A 1. pneumonia 2. respiratory failure 3. leucocytosis worse 4. e.coli | klebsiella UTI 5. rectal VRE colonization 6. c.diff colitis P 1. d/c vancomycin iv, zosyn, flagyl 2. start ceftriaxone, po vancomycin 3. will follow up cultures Subjective ROS Limited/Unobtainable: Yes Allergies: Coded Allergies: NO KNOWN DRUG ALLERGIES (Verified Allergy, Unknown, 12/02/16) Objective Vital Signs Last 24 Hour Vital Signs Date Time Temp Pulse Resp B/P Pulse Ox O2 Delivery O2 Flow Rate FiO2 12/06/16 09:01 98.1 12/06/16 08:34 104 12/06/16 08:32 104 134/82 12/06/16 08:26 101.7 104 19 134/82 97 Trach Collar 12/06/16 07:36 109 12/06/16 07:30 109 20 T-piece 10.0 40 12/06/16 07:30 95 T-piece 10.0 40 12/06/16 07:30 T-piece 10.0 40 12/06/16 04:00 99.5 103 18 128/77 97 Trach Collar 12/06/16 04:00 110 12/06/16 01:19 T-piece 10.0 40 12/06/16 01:19 96 T-piece 10.0 40 12/06/16 00:00 102 12/06/16 00:00 99.3 102 20 128/74 96 Trach Collar 12/05/16 21:00 122 117/78 12/05/16 20:00 117 12/05/16 20:00 97.7 98 20 117/78 94 Trach Collar 12/05/16 19:52 94 T-piece 10.0 40 12/05/16 19:52 T-piece 10.0 40 12/05/16 19:51 120 20 T-piece 10.0 40 12/05/16 18:00 98.6 110 18 149/76 93 T-piece 12/05/16 17:30 99.9 139 18 152/94 91 T-piece 12/05/16 17:00 100.0 137 18 159/106 92 T-piece 12/05/16 16:21 156/103 12/05/16 16:00 141 12/05/16 16:00 101.7 80 18 156/103 90 T-piece 12/05/16 13:45 T-piece 10.0 40 12/05/16 13:44 97 T-piece 10.0 40 12/05/16 12:00 99.1 121 20 152/96 95 T-piece 12/05/16 12:00 128 Height (Feet): 4 Height (Inches): 9.00 Weight (Pounds): 100 HEENT: status post trach Respiratory/Chest: lungs clear Cardiovascular: normal rate, regular rhythm, no gallop/murmur Abdomen: soft, non tender, other - GT Extremities: no edema Microbiology Date/Time Source Procedure Growth Status 12/05/16 15:25 Sputum Gram Stain Pending Resulted 12/05/16 15:25 Sputum Sputum Culture - Preliminary Resulted 12/05/16 23:00 Stool Clostridium difficile Toxin Assay - Final Complete Laboratory Tests Test 12/06/16 07:45 White Blood Count 27.5 K/UL (4.8-10.8) *H Red Blood Count 4.00 M/UL (4.20-5.40) L Hemoglobin 11.2 G/DL (12.0-16.0) L Hematocrit 33.7 % (37.0-47.0) L Mean Corpuscular Volume 84 FL (80-99) Mean Corpuscular Hemoglobin 28.0 PG (27.0-31.0) Mean Corpuscular Hemoglobin Concent 33.3 G/DL (32.0-36.0) Red Cell Distribution Width 14.5 % (11.6-14.8) Platelet Count 533 K/UL (150-450) H Mean Platelet Volume 8.1 FL (6.5-10.1) Neutrophils (%) (Auto) % (45.0-75.0) Lymphocytes (%) (Auto) % (20.0-45.0) Monocytes (%) (Auto) % (1.0-10.0) Eosinophils (%) (Auto) % (0.0-3.0) Basophils (%) (Auto) % (0.0-2.0) Neutrophils % (Manual) Pending Lymphocytes % (Manual) Pending Platelet Estimate Pending Platelet Morphology Pending Sodium Level 131 mEQ/L (135-145) L Potassium Level 3.1 mEQ/L (3.4-4.9) L Chloride Level 95 mEQ/L (98-107) L Carbon Dioxide Level 28 mEQ/L (20-30) Anion Gap 8 (5-15) Blood Urea Nitrogen 10 mg/dL (7-23) Creatinine 0.3 mg/dL (0.5-0.9) L Estimat Glomerular Filtration Rate mL/min (>60) Glucose Level 154 mg/dL (74-106) H Calcium Level 8.1 mg/dL (8.6-10.2) L SHELLEY JOHNSON Dec 06, 2016 10:15"
[2016-12-06] MEDS ORDERED: Tubing IV Secondary IV ONE (10:32)
[2016-12-06] MEDS ORDERED: Sterile Water Irrig 1000ml IRRIG ONE (10:32)
[2016-12-06 11:07] LABS: ANISOCYTOSIS 1+; BAND NEUTROPHILS % (MANUAL) 4 % (0-8); BASOPHILS % (MANUAL) 0 % (0-2); EOSINOPHILS % (MANUAL) 1 % (0-3); LYMPHOCYTES % (MANUAL) 8 % (20-45); NEUTROPHILS % (MANUAL) 79 % (45-75); PLATELET ESTIMATE INCREASED; PLATELET MORPHOLOGY NORMAL; TOTAL CELLS COUNTED 100
[2016-12-06 11:30] LABS: OTHERS PATHOLOGIST COMMENT
[2016-12-06] MEDS: cefTRIAXone 1 GM in D5W 55 ML IVPB SCH (11:55)
[2016-12-06 12:00] VITALS: BP 127/78
[2016-12-06] MEDS: Vancomycin oral 125mg/2.5ml GT SCH ×3 (12:06→21:30)
[2016-12-06] MEDS ORDERED: KCl 10% 40mEq/30ml liquid GT ONE (12:30)
[2016-12-06] MEDS ORDERED: Vancomycin oral 125mg/2.5ml ORAL SCH (13:00)
[2016-12-06 16:00] VITALS: BP 127/77
--- NOTE | 2016-12-06 17:29 | General Progress Note ---
Assessment/Plan Assessment/Plan IMPRESSION possible sepsis leukocytosis ALOC chronic encephalopathy Chronic respiratory Pressure ulcer tachycardia PLAN care noted DNR IV antibiotics ID evaluation wound care oxygen therapy nutrition stabilize and dc to SNF when stable impression, plan, and exam edited and reviewed in detail care discussed with RN Subjective Allergies: Coded Allergies: NO KNOWN DRUG ALLERGIES (Verified Allergy, Unknown, 12/02/16) Subjective d/w family DNR aware of poor prognosis Objective Last 24 Hour Vital Signs Date Time Temp Pulse Resp B/P Pulse Ox O2 Delivery O2 Flow Rate FiO2 12/06/16 16:00 98.2 96 20 127/77 98 Trach Collar 12/06/16 13:35 96 T-piece 10.0 40 12/06/16 13:35 T-piece 10.0 40 12/06/16 12:00 98.1 94 20 127/78 98 Trach Collar 12/06/16 11:52 94 12/06/16 09:01 98.1 12/06/16 08:34 104 12/06/16 08:32 104 134/82 12/06/16 08:26 101.7 104 19 134/82 97 Trach Collar 12/06/16 07:36 109 12/06/16 07:30 109 20 T-piece 10.0 40 12/06/16 07:30 95 T-piece 10.0 40 12/06/16 07:30 T-piece 10.0 40 12/06/16 04:00 99.5 103 18 128/77 97 Trach Collar 12/06/16 04:00 110 12/06/16 01:19 T-piece 10.0 40 12/06/16 01:19 96 T-piece 10.0 40 12/06/16 00:00 102 12/06/16 00:00 99.3 102 20 128/74 96 Trach Collar 12/05/16 21:00 122 117/78 12/05/16 20:00 117 12/05/16 20:00 97.7 98 20 117/78 94 Trach Collar 12/05/16 19:52 94 T-piece 10.0 40 12/05/16 19:52 T-piece 10.0 40 12/05/16 19:51 120 20 T-piece 10.0 40 12/05/16 18:00 98.6 110 18 149/76 93 T-piece 12/05/16 17:30 99.9 139 18 152/94 91 T-piece Intake and Output 12/05/16 12/06/16 19:00 07:00 Intake Total 1842.5 ml 1482.5 ml Output Total 1525 ml 650 ml Balance 317.5 ml 832.5 ml Intake Free Water 150 ml 120 ml IV Total 1092.5 ml 812.5 ml Tube Feeding 600 ml 550 ml Output Urine Total 1525 ml 650 ml # Bowel Movements 4 3 Laboratory Tests 12/06/16 07:45: White Blood Count 27.5*H, Red Blood Count 4.00L, Hemoglobin 11.2L, Hematocrit 33.7L, Mean Corpuscular Volume 84, Mean Corpuscular Hemoglobin 28.0, Mean Corpuscular Hemoglobin Concent 33.3, Red Cell Distribution Width 14.5, Platelet Count 533H, Mean Platelet Volume 8.1, Neutrophils (%) (Auto) , Lymphocytes (%) ( Auto) , Monocytes (%) (Auto) , Eosinophils (%) (Auto) , Basophils (%) (Auto) , Differential Total Cells Counted 100, Neutrophils % (Manual) 79H, Lymphocytes % (Manual) 8L, Monocytes % (Manual) 8, Eosinophils % (Manual) 1, Basophils % ( Manual) 0, Band Neutrophils 4, Platelet Estimate IncreasedH, Platelet Morphology Normal, Anisocytosis 1+, Sodium Level 131L, Potassium Level 3.1L, Chloride Level 95L, Carbon Dioxide Level 28, Anion Gap 8, Blood Urea Nitrogen 10 , Creatinine 0.3L, Estimat Glomerular Filtration Rate , Glucose Level 154H, Calcium Level 8.1L Height (Feet): 4 Height (Inches): 9.00 Weight (Pounds): 100 Objective WDWN poor LOc reduced breath sounds bilaterally with some rhonchi S1S2 RRR without MRG NABS nontender no HSM; GT no CCE nonfocal decub HARIS ACEVEDO Dec 06, 2016 17:29
[2016-12-06 20:00] VITALS: BP 119/70
[2016-12-07 00:08] VITALS: BP 133/73
[2016-12-07 04:15] VITALS: BP 139/77
[2016-12-07 08:00] VITALS: BP 129/72
[2016-12-07] MEDS: sitaGLIPtin 50mg tab GT SCH (08:58)
[2016-12-07] MEDS: Levothyroxine 25mcg tab GT SCH (08:58)
[2016-12-07] MEDS: Zinc Sulfate 220mg cap GT SCH (08:59)
[2016-12-07] MEDS: Digoxin 0.125mg tab ORAL SCH (09:01)
[2016-12-07] MEDS: Ascorbic Acid 500mg tab GT SCH (09:01)
[2016-12-07] MEDS: levETIRAcetam 500mg/5ml Liquid GT SCH ×2 (09:02→20:56)
[2016-12-07] MEDS: Docusate 100mg/10ml Liq ORAL SCH (09:02)
[2016-12-07] MEDS: Milk of Magnesia 30ml Ud GT SCH (09:02)
[2016-12-07] MEDS: Enoxaparin 30mg Inj SUBQ SCH (09:02)
[2016-12-07] MEDS: Vancomycin oral 125mg/2.5ml GT SCH ×4 (09:03→20:57)
[2016-12-07] MEDS: cefTRIAXone 1 GM in D5W 55 ML IVPB SCH (09:03)
--- NOTE | 2016-12-07 11:59 | Infectious Diseases Prog Note ---
"Assessment/Plan Assessment/Plan A 1. pneumonia 2. respiratory failure 3. leucocytosis worse 4. e.coli | klebsiella UTI 5. rectal VRE colonization 6. c.difficile colitis P 1. Continue ceftriaxone, PO vancomycin 2. will follow up cultures Subjective ROS Limited/Unobtainable: Yes Allergies: Coded Allergies: NO KNOWN DRUG ALLERGIES (Verified Allergy, Unknown, 12/02/16) Objective Vital Signs Last 24 Hour Vital Signs Date Time Temp Pulse Resp B/P Pulse Ox O2 Delivery O2 Flow Rate FiO2 12/07/16 09:01 99 12/07/16 08:59 102 129/72 12/07/16 08:00 99.7 102 26 129/72 96 Trach Collar 40 12/07/16 08:00 103 12/07/16 07:10 95 T-piece 10.0 40 12/07/16 07:10 T-piece 10.0 40 12/07/16 07:10 100 20 T-piece 10.0 40 12/07/16 04:15 98.2 99 20 139/77 96 Room Air 12/07/16 04:00 104 12/07/16 00:17 T-piece 10.0 40 12/07/16 00:16 96 T-piece 10.0 40 12/07/16 00:08 98.1 100 20 133/73 98 Room Air 12/06/16 23:39 103 12/06/16 21:29 99 119/70 12/06/16 20:00 99.5 99 20 119/70 96 Nasal Cannula 2.0 12/06/16 19:54 101 12/06/16 19:30 101 22 T-piece 10.0 40 12/06/16 19:30 T-piece 10.0 40 12/06/16 19:30 98 T-piece 10.0 40 12/06/16 16:00 96 12/06/16 16:00 98.2 96 20 127/77 98 Trach Collar 12/06/16 13:35 96 T-piece 10.0 40 12/06/16 13:35 T-piece 10.0 40 12/06/16 12:00 98.1 94 20 127/78 98 Trach Collar Height (Feet): 4 Height (Inches): 9.00 Weight (Pounds): 100 General Appearance: no acute distress HEENT: status post trach, other - s/p craniotomy Respiratory/Chest: lungs clear, other - on T bar Cardiovascular: normal rate Abdomen: soft, non tender, other - GT feeding Extremities: no edema Neurologic/Psychiatric: unresponsiveness Microbiology Date/Time Source Procedure Growth Status 12/05/16 15:25 Sputum Gram Stain - Final Resulted 12/05/16 15:25 Sputum Culture - Preliminary Gram Negative Bacillus 1 Resulted 12/05/16 23:00 Stool Clostridium difficile Toxin Assay - Final Complete Current Medications Medications (Trade) Dose Ordered Sig/Bernadette Route PRN Reason Start Time Stop Time Status Last Admin Dose Admin Acetaminophen (Tylenol) 650 mg Q4H PRN GT Mild Pain/Temp > 100.5 12/02/16 18:00 01/01/17 17:59 12/06/16 08:31 Al Hydroxide/Mg Hydroxide (Mylanta) 30 ml EVERY 4 HOURS PRN ORAL Abdominal cramps 12/02/16 15:00 01/01/17 14:59 Ascorbic Acid (Vitamin C) 500 mg DAILY GT 12/03/16 09:00 01/02/17 08:59 12/07/16 09:01 Atenolol (Tenormin) 50 mg Q12HR GT 12/05/16 21:00 01/04/17 20:59 12/07/16 08:59 Bisacodyl (Dulcolax) 10 mg EVERY 12 HOURS PRN RECTAL Constipation 12/02/16 15:00 01/01/17 14:59 Ceftriaxone Sodium/Dextrose (Rocephin/D5W) 55 ml @ 110 mls/hr DAILY IVPB 12/06/16 11:30 12/13/16 11:29 12/07/16 09:03 Clonidine HCl 0.1 mg 0.1 mg Q4H PRN GT For High Blood Pressure 12/05/16 16:15 01/04/17 16:14 12/05/16 16:21 Dextrose STAT PRN IV Hypoglycemia 12/02/16 15:00 01/01/17 14:59 Digoxin (Lanoxin) 0.125 mg DAILY ORAL 12/05/16 09:00 01/04/17 08:59 12/07/16 09:01 Docusate Sodium (Colace) 100 mg DAILY ORAL 12/03/16 09:00 01/02/17 08:59 12/07/16 09:02 Enoxaparin Sodium (Lovenox) 30 mg DAILY SUBQ 12/03/16 09:00 01/02/17 08:59 12/07/16 09:02 Lansoprazole (Prevacid) 30 mg DAILY GT 12/04/16 09:00 01/03/17 08:59 12/07/16 08:59 Levetiracetam (Keppra) 500 mg EVERY 12 HOURS GT 12/02/16 21:00 01/01/17 20:59 12/07/16 09:02 Levothyroxine Sodium (Synthroid) 25 mcg DAILY GT 12/03/16 09:00 01/02/17 08:59 12/07/16 08:58 Magnesium Hydroxide (Mom) 30 ml DAILY GT 12/03/16 09:00 01/02/17 08:59 12/07/16 09:02 Sitagliptin Phosphate (Januvia) 50 mg DAILY GT 12/03/16 09:00 01/02/17 08:59 12/07/16 08:58 Sodium Chloride (Sodium Chloride 1000ml bag) 1,000 ml @ 100 mls/hr Q10H IV 12/02/16 15:00 01/01/17 14:59 12/07/16 05:08 Sodium Phosphate (Fleet's Sodium Phosl Enema) 133 ml QOD PRN RECTAL Constipation 12/02/16 16:00 01/01/17 15:59 Vancomycin HCl (Vancomycin) 125 mg FOUR TIMES A DAY GT 12/06/16 13:00 12/13/16 12:59 12/07/16 09:03 Zinc Sulfate (Zinc Sulfate) 220 mg DAILY GT 12/03/16 09:00 01/02/17 08:59 12/07/16 08:59 Zolpidem Tartrate (Ambien) 5 mg HSPRN PRN ORAL Insomnia 12/02/16 21:00 01/01/17 20:59 12/05/16 22:11 NHUNG COLEY Dec 07, 2016 11:59"
[2016-12-07 12:00] VITALS: BP 147/81
[2016-12-07 16:00] VITALS: BP 147/83
--- NOTE | 2016-12-07 19:52 | General Progress Note ---
Assessment/Plan Assessment/Plan IMPRESSION possible sepsis leukocytosis ALOC chronic encephalopathy Chronic respiratory Pressure ulcer tachycardia PLAN care noted DNR IV antibiotics ID noted wound care oxygen therapy nutrition dc to SNF impression, plan, and exam edited and reviewed in detail care discussed with RN Subjective Allergies: Coded Allergies: NO KNOWN DRUG ALLERGIES (Verified Allergy, Unknown, 12/02/16) Subjective d/w family DNR aware of poor prognosis Objective Last 24 Hour Vital Signs Date Time Temp Pulse Resp B/P Pulse Ox O2 Delivery O2 Flow Rate FiO2 12/07/16 16:00 98.4 94 28 147/83 95 Trach Collar 40 12/07/16 16:00 98 12/07/16 13:56 T-piece 10.0 40 12/07/16 13:55 94 T-piece 10.0 40 12/07/16 12:00 98.2 98 22 147/81 97 Trach Collar 40 12/07/16 12:00 118 12/07/16 09:01 99 12/07/16 08:59 102 129/72 12/07/16 08:00 99.7 102 26 129/72 96 Trach Collar 40 12/07/16 08:00 103 12/07/16 07:10 95 T-piece 10.0 40 12/07/16 07:10 T-piece 10.0 40 12/07/16 07:10 100 20 T-piece 10.0 40 12/07/16 04:15 98.2 99 20 139/77 96 Room Air 12/07/16 04:00 104 12/07/16 00:17 T-piece 10.0 40 12/07/16 00:16 96 T-piece 10.0 40 12/07/16 00:08 98.1 100 20 133/73 98 Room Air 12/06/16 23:39 103 12/06/16 21:29 99 119/70 12/06/16 20:00 99.5 99 20 119/70 96 Nasal Cannula 2.0 12/06/16 19:54 101 Intake and Output 12/06/16 12/07/16 19:00 07:00 Intake Total 1789.2 ml 1730 ml Output Total 300 ml 500 ml Balance 1489.2 ml 1230 ml Intake Free Water 30 ml IV Total 1229.2 ml 1100 ml Tube Feeding 500 ml 600 ml Other 60 ml Output Urine Total 300 ml 500 ml # Bowel Movements 8 1 Height (Feet): 4 Height (Inches): 9.00 Weight (Pounds): 100 Objective WDWN poor LOc reduced breath sounds bilaterally with some rhonchi S1S2 RRR without MRG NABS nontender no HSM; GT no CCE nonfocal decub HARIS ACEVEDO Dec 07, 2016 19:52
[2016-12-07 20:11] VITALS: BP 162/92
[2016-12-08 00:10] VITALS: BP 153/89
[2016-12-08 04:22] VITALS: BP 155/91
[2016-12-08 07:49] VITALS: BP 121/75
--- NOTE | 2016-12-08 08:01 | General Progress Note ---
Assessment/Plan Assessment/Plan IMPRESSION possible sepsis leukocytosis ALOC chronic encephalopathy Chronic respiratory Pressure ulcer tachycardia PLAN care noted DNR IV antibiotics ID noted wound care oxygen therapy nutrition dc to SNF impression, plan, and exam edited and reviewed in detail care discussed with RN Subjective Allergies: Coded Allergies: NO KNOWN DRUG ALLERGIES (Verified Allergy, Unknown, 12/02/16) Subjective d/w family DNR aware of poor prognosis Objective Last 24 Hour Vital Signs Date Time Temp Pulse Resp B/P Pulse Ox O2 Delivery O2 Flow Rate FiO2 12/08/16 07:49 96.8 86 18 121/75 92 Trach Collar 12/08/16 06:56 88 18 T-piece 10.0 40 12/08/16 06:56 93 T-piece 10.0 40 12/08/16 06:56 T-piece 10.0 40 12/08/16 04:47 155/91 12/08/16 04:28 95 12/08/16 04:22 97.7 96 19 155/91 92 Trach Collar 12/08/16 01:20 94 T-piece 10.0 40 12/08/16 01:20 T-piece 10.0 40 12/08/16 00:10 97.9 97 17 153/89 93 Trach Collar 12/07/16 23:49 95 12/07/16 20:58 98 147/83 12/07/16 20:11 97.7 100 18 162/92 Trach Collar 12/07/16 19:18 100 12/07/16 19:00 99 18 T-piece 10.0 40 12/07/16 19:00 95 T-piece 10.0 40 12/07/16 19:00 T-piece 10.0 40 12/07/16 16:00 98.4 94 28 147/83 95 Trach Collar 40 12/07/16 16:00 98 12/07/16 13:56 T-piece 10.0 40 12/07/16 13:55 94 T-piece 10.0 40 12/07/16 12:00 98.2 98 22 147/81 97 Trach Collar 40 12/07/16 12:00 118 12/07/16 09:01 99 12/07/16 08:59 102 129/72 Intake and Output 12/07/16 12/08/16 19:00 07:00 Intake Total 1293 ml 630 ml Output Total 500 ml 600 ml Balance 793 ml 30 ml Intake Free Water 30 ml IV Total 1243 ml Tube Feeding 50 ml 600 ml Output Urine Total 500 ml 600 ml # Bowel Movements 4 Height (Feet): 4 Height (Inches): 9.00 Weight (Pounds): 100 Objective WDWN poor LOc reduced breath sounds bilaterally with some rhonchi S1S2 RRR without MRG NABS nontender no HSM; GT no CCE nonfocal decub HARIS ACEVEDO Dec 08, 2016 08:01
[2016-12-08] MEDS: Levothyroxine 25mcg tab GT SCH (08:57)
[2016-12-08] MEDS: Digoxin 0.125mg tab ORAL SCH (08:57)
[2016-12-08] MEDS: sitaGLIPtin 50mg tab GT SCH (08:57)
[2016-12-08] MEDS: Zinc Sulfate 220mg cap GT SCH (08:57)
[2016-12-08] MEDS: Docusate 100mg/10ml Liq ORAL SCH (08:57)
[2016-12-08] MEDS: levETIRAcetam 500mg/5ml Liquid GT SCH (08:57)
[2016-12-08] MEDS: Milk of Magnesia 30ml Ud GT SCH (08:58)
[2016-12-08] MEDS: Ascorbic Acid 500mg tab GT SCH (08:58)
[2016-12-08] MEDS: Enoxaparin 30mg Inj SUBQ SCH (09:00)
[2016-12-08] MEDS: cefTRIAXone 1 GM in D5W 55 ML IVPB SCH (09:13)
[2016-12-08] MEDS: Vancomycin oral 125mg/2.5ml GT SCH ×3 (09:14→18:25)
[2016-12-08] MEDS ORDERED: NS 275ml ONE (09:49)
[2016-12-08] MEDS ORDERED: Tubing IV Secondary IV ONE (09:49)
[2016-12-08 11:23] VITALS: BP 144/79
--- NOTE | 2016-12-08 11:50 | Infectious Diseases Prog Note ---
"Assessment/Plan Assessment/Plan antibiotics : ceftriaxone, vancomycin po A 1. acenitobacter | gram negative pneumonia 2. respiratory failure 3. leucocytosis worse 4. e.coli | klebsiella UTI s/p rx 5. rectal VRE colonization 6. c.diff colitis P 1. d/c ceftriaxone 2. continue po vancomycin 11 more days 3. start and continue bactrim GT 10 days 4. will follow up cultures Subjective ROS Limited/Unobtainable: Yes Allergies: Coded Allergies: NO KNOWN DRUG ALLERGIES (Verified Allergy, Unknown, 12/02/16) Objective Vital Signs Last 24 Hour Vital Signs Date Time Temp Pulse Resp B/P Pulse Ox O2 Delivery O2 Flow Rate FiO2 12/08/16 11:23 97.9 90 18 144/79 92 Trach Collar 12/08/16 08:58 86 121/75 12/08/16 08:57 86 12/08/16 07:49 96.8 86 18 121/75 92 Trach Collar 12/08/16 06:56 88 18 T-piece 10.0 40 12/08/16 06:56 93 T-piece 10.0 40 12/08/16 06:56 T-piece 10.0 40 12/08/16 04:47 155/91 12/08/16 04:28 95 12/08/16 04:22 97.7 96 19 155/91 92 Trach Collar 12/08/16 01:20 94 T-piece 10.0 40 12/08/16 01:20 T-piece 10.0 40 12/08/16 00:10 97.9 97 17 153/89 93 Trach Collar 12/07/16 23:49 95 12/07/16 20:58 98 147/83 12/07/16 20:11 97.7 100 18 162/92 Trach Collar 12/07/16 19:18 100 12/07/16 19:00 99 18 T-piece 10.0 40 12/07/16 19:00 95 T-piece 10.0 40 12/07/16 19:00 T-piece 10.0 40 12/07/16 16:00 98.4 94 28 147/83 95 Trach Collar 40 12/07/16 16:00 98 12/07/16 13:56 T-piece 10.0 40 12/07/16 13:55 94 T-piece 10.0 40 12/07/16 12:00 98.2 98 22 147/81 97 Trach Collar 40 12/07/16 12:00 118 Height (Feet): 4 Height (Inches): 9.00 Weight (Pounds): 100 HEENT: status post trach Respiratory/Chest: lungs clear Cardiovascular: normal rate, regular rhythm, no gallop/murmur Abdomen: soft, non tender, other - GT Extremities: no edema Microbiology Date/Time Source Procedure Growth Status 12/05/16 15:25 Sputum Gram Stain - Final Resulted 12/05/16 15:25 Sputum Culture - Preliminary A.[email or web address] Complx - Mdr Gram Negative Bacillus 2 Resulted 12/05/16 23:00 Stool Clostridium difficile Toxin Assay - Final Complete SHELLEY JOHNSON Dec 08, 2016 11:50"
[2016-12-08] MEDS ORDERED: Bactrim DS (160mg/800mg) tab ORAL SCH (12:30)
[2016-12-08] MEDS ORDERED: TENORMIN100 MG GT (14:11)
[2016-12-08] MEDS ORDERED: MYLANTA30 M1 GT (14:11)
[2016-12-08] MEDS ORDERED: CLONIDINE HCL0.1 MG GT (14:13)
[2016-12-08] MEDS ORDERED: DIGOXIN ELIX0.125 MG GT (14:14)
[2016-12-08] MEDS ORDERED: LANSOPRAZOLE30 M2 GT (14:16)
[2016-12-08] MEDS ORDERED: VANCOMYCIN HCL125 MG GT (14:18)
[2016-12-08] MEDS ORDERED: BACTRIM DOUBLE S1 E1 ORAL (14:19)
[2016-12-08] MEDS ORDERED: AMBIEN5 MG GT (14:19)
[2016-12-08 15:24] VITALS: BP 150/86
--- NOTE | 2016-12-10 22:45 | Cardiology Report ---
APPROVED REPORT EKG Measurement Heart [id number] Sinus tachycardia with premature supraventricular complexes Low voltage QRS Borderline ECG
--- NOTE | 2016-12-11 10:12 | Discharge Summary ---
Discharge Summary Hospital Course Date of Admission Dec 02, 2016 at 10:10 Date of Discharge Dec 08, 2016 at 18:30 Admitting Diagnosis Sepsis HPI Vika Mckeon is a 81 year old female who was admitted on Dec 02, 2016 at 10:10 for Sepsis Hospital Course dc summary #[id number] Discharge Medications Continued Medications: Acetaminophen 160MG/5ML* (Acetaminophen*) 160 Mg/5 Ml Elixir 20 ML GT NEEDED, ML Al Hydroxide/mg Hydroxide (Mag-Al Liquid) 30 Ml Oral.susp 30 ML GT, ML Ascorbic Acid* (Vitamin C*) 500 Mg Tablet 500 MG GT DAILY, #30 TAB 0 Refills Atenolol (Tenormin) 100 Mg Tablet 50 MG GT DAILY, TAB Bisacodyl (Dulcolax) 10 Mg Supp.rect 10 MG RC, SUPP Clonidine Hcl (Clonidine Hcl) 0.1 Mg Tablet 0.1 MG GT EVERY 4 HOURS for For High Blood Pressure, TAB Digoxin (Digoxin) 50 Mcg/1 Ml Solution 0.125 MG GT DAILY, ML Docusate Sodium* (Colace*) 100 Mg Capsule 100 MG GT DAILY, CAP Enoxaparin* (Lovenox*) 40 Mg/0.4 Ml Inj 40 MG SUBQ DAILY Lansoprazole (Lansoprazole) 30 Mg Capsule.dr 30 MG GT DAILY, CAP Levetiracetam* (Levetiracetam*) 500 Mg Tablet 500 MG GT EVERY 12 HOURS, #60 TAB 0 Refills Levothyroxine Sodium* (Levothyroxine Sodium*) 25 Mcg Tablet 25 MCG GT DAILY, TAB Take in the morning on an empty stomach, at least 30 minutes before food. Magnesium Hydroxide* (Milk Of Magnesia*) 400 Mg/5 Ml Oral.susp 30 ML GT DAILY, ML Na Phos,M-B/Na Phos,Di-Ba (Fleet Enema) 133 Ml Enema 133 ML RC, EA Sitagliptin (Januvia) 50 Mg Tablet 50 MG GT DAILY, TAB Trimethoprim/Sulfamethoxazole (Bactrim 400-80 mg Tablet) 1 Each Tablet 1 TAB ORAL EVERY 12 HOURS, TAB Vancomycin Hcl (Vancomycin Hcl) 125 Mg Capsule 125 MG GT FOUR TIMES A DAY, CAP Zinc Sulfate (Zinc Sulfate*) 220 Mg Capsule 220 MG GT DAILY, CAP 0 Refills Zolpidem Tartrate* (Ambien*) 5 Mg Tablet 5 MG GT BEDTIME PRN for Insomnia, TAB Discontinued Medications: Cran/Vitc/Mannose/Inulin/Brom (Uti-Stat Liquid) 3,875 Mg/30 Ml Liquid 30 ML GT DAILY, ML Famotidine (Famotidine) 20 Mg Tablet 20 MG ORAL DAILY, #30 TAB 0 Refills Metoprolol Tartrate* (Metoprolol Tartrate*) 25 Mg Tablet 25 MG GT EVERY 6 HOURS, TAB Protein Supplement (Promod) 946 Ml Liquid 30 ML GT BID, ML Discharge Condition Upon Discharge: stable Discharge Disposition Patient was discharged to SNF/Subacute Facility(03) Discharge Diagnoses: Discharge Instructions Discharge Instructions Special Instructions I have been assigned to complete a D/C Summary on this account. I was not involved in the patient management Malou Raymond NP ([facility]) Dec 11, 2016 10:12
--- NOTE | 2016-12-12 01:30 | Discharge Summary 2 SIG ---
DATE OF ADMISSION: 12/02/2016 DATE OF DISCHARGE: 12/08/2016 REASON FOR ADMISSION: The patient is an 81 years old female, resident of a residential facility with past medical history of chronic respiratory failure, tracheostomy status, dysphagia, G-tube, hypertension, and right-sided craniotomy, presented to the emergency room for evaluation. The patient was sent from the residential facility for altered mental status. The patient also had a fever at the residential facility. 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 No hypoxia, no hypotension. The patient has a history of right craniotomy, secondary to intracerebral hemorrhage and right side paresis. Workup in the emergency room revealed fever of 101.3 and repeated in half an hour 104.3, heart rate 145, respiratory rate 24, and blood pressure is stable. Trach collar on five liters revealed pulse oximetry of 93%. The patient noted to have leukocytosis of 12.8 and anemia hemoglobin 8.2 and hematocrit 25.8. Urinalysis consistent with urinary tract infection. Chest x-ray revealed pneumonia versus pulmonary edema. The patient pancultured, started on empiric antibiotics. The patient also started on fluid resuscitation. Tylenol as antipyretic provided. Mental status improved to the baseline and she was able to move extremity, was responsive and interactive. The patient admitted for further management. ADMITTING DIAGNOSES: Include: 1. Sepsis. 2. Altered mental status. 3. Urinary tract infection. 4. Pneumonia. 5. Chronic respiratory failure. 6. Chronic encephalopathy. 7. Dysphagia, gastrostomy tube. HOSPITAL STAY: The patient admitted. The patient started on empiric antibiotics. Infectious Disease consult was requested. Blood cultures were negative. Urine culture grew Klebsiella pneumoniae and E coli. Sputum culture grew Acinetobacter multidrug resistant and Stenotrophomonas maltophilia. Repeated blood cultures were negative. Influenza screen was negative. The patient was on antibiotic regimen, was optimized by Infectious Diseases, who closely followed the patient. On 12/05/2016, noted sharp increase in leukocytosis to 26.2. Stool C. difficile was ordered and was positive for C. diff infection. The patient started on oral vancomycin. Fever resolved, though the patient noted to be anemic upon presentation. On the second day, hemoglobin and hematocrit down to 7.2 and 21.6 respectively. The patient undergone transfusion of two units of packed red blood cells. Prior to discharge, hemoglobin 11.2, hematocrit 33.7, no evidence of bleeding. Potassium was replaced as needed. Follow up chest x-ray revealed bilateral pleural effusion and pulmonary edema. CT of the head was done and revealed right craniectomy, possible underlying vasogenic edema, possible mass. Compare to the previous study was highly recommended. Strict aspiration precautions were maintained. The patient was on G-tube feeding, able to tolerate. Wound care nurse seen and evaluated the patient for present on admission sacral decubitus, unstageable. Wound care provided as per wound care nurse recommendation. Initial acute altered mental status was likely secondary to acute toxic metabolic encephalopathy, secondary to sepsis/infectious process, which resolved as the patient started on fluid resuscitation and antibiotics. Mental status back to baseline. The patient was stable for discharge. DISCHARGE DIAGNOSES: Include: 1. Altered mental status, secondary to acute toxic metabolic encephalopathy. 2. Sepsis. 3. Pneumonia with Acinetobacter multidrug resistant and Stenotrophomonas. 4. Urinary tract infection with Klebsiella and Escherichia coli. 5. Chronic respiratory failure. 6. Tracheostomy status. 7. Chronic encephalopathy. 8. Anemia, status post blood transfusion. 9. Dysphagia, gastrostomy tube. 10. Clostridium difficile colitis. 11. Sacral decubitus, unstageable, present on admission. DISCHARGE INSTRUCTIONS: Follow up with medical doctor at the facility. The patient discharged to residential facility where she resides. DISCHARGE MEDICATIONS: See medication reconciliation list. Santos Catalan M.D. I have been assigned to dictate discharge summary on this account and I was not involved in the patient's management. Malou Raymond (vanchtein) NGopi DR: SOHEILA JOB#: [id number] CC:
== END 2016-12-08 18:30 | DRG 720 ==
LOC: EDBD 08:05 → EMR 08:20 → 2E 10:10 → EDBEDREQ 10:33
PROC: 30233N1 Transfusion of Nonautologous Red Blood Cells into Peripheral Vein, Percutaneous Approach (ICD-10-PCS; principal; 2016-12-03)
DX: A41.9 Sepsis, unspecified organism (principal); J15.6 Pneumonia due to other Gram-negative bacteria; L89.150 Pressure ulcer of sacral region, unstageable; A04.7 Enterocolitis due to Clostridium difficile; J96.10 Chronic respiratory failure, unspecified whether with hypoxia or hypercapnia; G92 Toxic encephalopathy; N39.0 Urinary tract infection, site not specified; Z43.0 Encounter for attention to tracheostomy; E03.9 Hypothyroidism, unspecified; K21.9 Gastro-esophageal reflux disease without esophagitis; Z43.1 Encounter for attention to gastrostomy; B96.20 Unspecified Escherichia coli [E. coli] as the cause of diseases classified elsewhere; B96.1 Klebsiella pneumoniae [K. pneumoniae] as the cause of diseases classified elsewhere; Z66 Do not resuscitate; Z16.24 Resistance to multiple antibiotics; D64.9 Anemia, unspecified; R13.10 Dysphagia, unspecified; G40.909 Epilepsy, unspecified, not intractable, without status epilepticus
CPT/HCPCS: 36415; 70450; 71010; 80048; 80053; 80150; 80202; 81003; 82550; 82553; 83605; 83880; 84484; 85007; 85025; 86710; 86850; 86900; 86901; 86920; 87040; 87070; 87081; 87086; 87181; 87205; 87324; 93005; 94664; 94760

== ENCOUNTER 2017-01-15 21:10 | Inpatient (IN) | payer OTHER ==
[~2017-01-15] VITALS: Ht 144.8 cm; Wt 38.6 kg
[~2017-01-15 21:10] MED LIST: ACETAMINOP160 MG/5 M GT; AMBIEN5 MG GT; BACTRIM DOUBLE S1 E1 ORAL; CLONIDINE HCL0.1 MG GT; COLACE100 MG GT; DIGOXIN ELIX0.125 MG GT; DULCOLAX10 MG RC; FAMOTIDINE20 MG ORAL; FLEET ENEMA133 M1 RC; JANUVIA50 MG GT; LANSOPRAZOLE30 M2 GT; LEVETIRACETAM500 MG GT; LEVOTHYROXINE25 MCG GT; LOVENOX10 M4 SUBQ; METOPROLOL TART25 MG GT; MILK OF MA400 MG/51 GT; MYLANTA30 M1 GT; PROMOD946 ML GT; TENORMIN100 MG GT; UTI-STAT L3875 MG/31 GT; VANCOMYCIN HCL125 MG GT; VITAMIN C500 M1 GT; ZINC SULFATE220 M1 GT
[2017-01-15] MEDS ORDERED: Acetaminophen 650mg/20.3ml GT ONE (21:30)
[2017-01-15 21:51] VITALS: BP 123/51
[2017-01-15 22:02] LABS: MEAN CORPUSCULAR HEMOGLOBIN 29.8 PG (27.0-31.0); MEAN CORPUSCULAR HGB CONC 33.2 G/DL (32.0-36.0); MEAN CORPUSCULAR VOLUME 90 FL (80-99); MEAN PLATELET VOLUME 7.2 FL (6.5-10.1); PLATELET COUNT 756 K/UL (150-450); RED BLOOD COUNT 2.55 M/UL (4.20-5.40); RED CELL DISTRIBUTION WIDTH 15.4 % (11.6-14.8)
[2017-01-15 22:09] LABS: WHITE BLOOD COUNT 29.5 K/UL (4.8-10.8)
[2017-01-15 22:13] LABS: KETONES,URINE NEGATIVE (NEGATIVE); LEUKOCYTE ESTERASE ,URINE 3+ (NEGATIVE); NITRITE,URINE NEGATIVE (NEGATIVE); PH,URINE 6 (4.5-8.0); PROTEIN,URINE 2+ (NEGATIVE); UROBILINOGEN,URINE NORMAL MG/DL (0.0-1.0)
[2017-01-15 22:17] LABS: APPEARANCE,URINE SLIGHTLY CLOUDY
[2017-01-15 22:31] LABS: ALANINE AMINOTRANSFERASE 44 U/L (3-33); ALBUMIN/GLOBULIN RATIO 0.5 (1.0-2.7); ANION GAP 11 (5-15); ASPARTATE AMINO TRANSFERASE 26 U/L (5-40); CALCIUM 8.4 mg/dL (8.6-10.2); CARBON DIOXIDE 30 mEQ/L (20-30); CHLORIDE 84 mEQ/L (98-107); CREATININE 0.5 mg/dL (0.5-0.9); HEMOLYSIS 7; POTASSIUM 4.7 mEQ/L (3.4-4.9); SODIUM 125 mEQ/L (135-145); TOTAL PROTEIN 6.1 g/dL (6.6-8.7); TROPONIN I < 0.30 ng/mL (<=0.30)
[2017-01-15 22:36] LABS: REFLEX LACTIC ACID YES OR NO YES
[2017-01-15 22:41] LABS: CKMB < 1.5 ng/mL (< 3.8)
[2017-01-15 22:53] LABS: BACTERIA,URINE MANY /HPF; SQUAMOUS EPITHELIAL CELL,UR FEW /LPF (NONE/OCC)
[2017-01-15 22:54] LABS: AMORPHOUS SEDIMENT,UR FEW /LPF; YEAST,URINE FEW /HPF
[2017-01-15 23:00] LABS: ANISOCYTOSIS 1+; BAND NEUTROPHILS % (MANUAL) 10 % (0-8); BASOPHILS % (MANUAL) 0 % (0-2); EOSINOPHILS % (MANUAL) 0 % (0-3); HYPOCHROMASIA 1+; LYMPHOCYTES % (MANUAL) 6 % (20-45); NEUTROPHILS % (MANUAL) 81 % (45-75); PLATELET ESTIMATE INCREASED; PLATELET MORPHOLOGY NORMAL; TOTAL CELLS COUNTED 100
[2017-01-15 23:03] LABS: PROTHROMBIN TIME 10.7 SEC (9.30-11.50)
[2017-01-16] VITALS (9 sets, daily range): BP systolic 88–123; BP diastolic 49–64
--- NOTE | 2017-01-16 01:51 | Emergency Room Report ---
History of Present Illness General Chief Complaint: Abnormal Labs Source: Family Member Present Illness HPI 81-year-old female presents ED for evaluation. Patient brought in for abnormal labs-as elevated white blood cell count. She resides in senior care. Patient has a trach and is on ventilator. Upon arrival patient showing no signs of distress. Patient has fever. No shortness of breath. Patient is unable to provide any additional history at this time. No other aggravating or relieving factors. Denies any other associated symptoms Allergies: Coded Allergies: NO KNOWN DRUG ALLERGIES (Verified Allergy, Unknown, 12/02/16) Patient History Past Medical History: HTN Past Surgical History: none Pertinent Family History: none Social History: Denies: alcohol use, drug use, smoking Last Menstrual Period: n/a Now: No Immunizations: UTD Reviewed Nursing Documentation: PMH: Agreed, PSxH: Agreed Nursing Documentation-PMH Past Medical History: No History, Except For Hx Hypertension: Yes Hx Cancer: No Review of Systems All Other Systems: negative except mentioned in HPI Physical Exam Vital Signs Date Time Temp Pulse Resp B/P Pulse Ox O2 Delivery O2 Flow Rate FiO2 01/15/17 20:59 98.8 120 30 96/51 100 Trach Collar 5.0 Sp02 EP Interpretation: reviewed, normal General Appearance: no apparent distress, non-toxic, thin Head: normocephalic, atraumatic Eyes: bilateral eye PERRL, bilateral eye normal inspection ENT: hearing grossly normal, normal pharynx, no angioedema, normal voice Neck: full range of motion, supple/symm/no masses Respiratory: lungs clear, normal breath sounds, crackles, speaking full sentences Cardiovascular #1: no edema, tachycardia Cardiovascular #2: 2+ carotid (R), 2+ carotid (L), 2+ radial (R), 2+ radial (L) , 2+ dorsalis pedis (R), 2+ dorsalis pedis (L) Gastrointestinal: normal bowel sounds, non tender, soft, non-distended, no guarding, no rebound, other - gtube Rectal: deferred Genitourinary: normal inspection, no CVA tenderness Musculoskeletal: back normal, normal range of motion, non-tender Neurologic: other - nonverbal Psychiatric: other - nonverbal Reflexes: 3+ bicep (R), 3+ bicep (L), 3+ tricep (R), 3+ tricep (L), 3+ knee (R) , 3+ knee (L) Skin: normal color, no rash, warm/dry, well hydrated Lymphatic: no adenopathy Medical Decision Making Diagnostic Impression: Primary Impression: Sepsis Qualified Codes: A41.9 - Sepsis, unspecified organism Additional Impressions: UTI (urinary tract infection) Qualified Codes: N39.0 - Urinary tract infection, site not specified Anemia Qualified Codes: D64.9 - Anemia, unspecified Chronic respiratory failure Qualified Codes: J96.10 - Chronic respiratory failure, unspecified whether with hypoxia or hypercapnia ER Course Hospital Course 81-year-old female presents to ED for elevated white cell count Differential diagnoses include: Pneumonia, UTI, sepsis, dehydration, RI/ unstable angina Clinical course Patient placed on stretcher. On radiographer cardiac catheterization with stable vitals are ED course. After initial history and physical, I ordered labs, IV fluids, EKG, chest x-ray, blood cultures, UA. given tyleno for fever Labs - electrolyts ok, marked leukocytosis, hb/hct 7.6/22.9. lactate 2.3. troponins negative, UA grossly positive for UTI EKG - sinus tachycardia, no ischemic changes interpreted by me CXR - bialteral interstitial infiltrates. trach in place Abx given. Given IV fluids. PRBCS ordered. Patient initially hypotensive improved with IV fluids Case discussed with Dr Catalan and they agreed to admit patient to their service for further care and support I feel this is a highly complex case requiring extensive working including EKG/ Rhythm strip, Xray/CT/US, Blood/urine lab work, repeat exams while in ED, and administration of strong opiates/narcotics for pain control, admission to hospital or close patient follow up. Diagnosis - sepsis, UTI, anemia, chronic respiratory failure Patient admitted to [facility] in serious condition Labs Test 01/15/17 21:15 01/15/17 21:30 01/15/17 23:11 Prothrombin Time 10.7 SEC (9.30-11.50) Prothromb Time International Ratio 1.0 (0.9-1.1) Activated Partial Thromboplast Time 34 SEC (23-33) White Blood Count 29.5 K/UL (4.8-10.8) Red Blood Count 2.55 M/UL (4.20-5.40) Hemoglobin 7.6 G/DL (12.0-16.0) Hematocrit 22.9 % (37.0-47.0) Mean Corpuscular Volume 90 FL (80-99) Mean Corpuscular Hemoglobin 29.8 PG (27.0-31.0) Mean Corpuscular Hemoglobin Concent 33.2 G/DL (32.0-36.0) Red Cell Distribution Width 15.4 % (11.6-14.8) Platelet Count 756 K/UL (150-450) Mean Platelet Volume 7.2 FL (6.5-10.1) Neutrophils (%) (Auto) % (45.0-75.0) Lymphocytes (%) (Auto) % (20.0-45.0) Monocytes (%) (Auto) % (1.0-10.0) Eosinophils (%) (Auto) % (0.0-3.0) Basophils (%) (Auto) % (0.0-2.0) Differential Total Cells Counted 100 Neutrophils % (Manual) 81 % (45-75) Lymphocytes % (Manual) 6 % (20-45) Monocytes % (Manual) 3 % (1-10) Eosinophils % (Manual) 0 % (0-3) Basophils % (Manual) 0 % (0-2) Band Neutrophils 10 % (0-8) Platelet Estimate Increased Platelet Morphology Normal Hypochromasia 1+ Anisocytosis 1+ Urine Color Yellow Urine Appearance Slightly cloudy Urine pH 6 (4.5-8.0) Urine Specific [place] 1.010 (1.005-1.035) Urine Protein 2+ (NEGATIVE) Urine Glucose (UA) Negative (NEGATIVE) Urine Ketones Negative (NEGATIVE) Urine Occult Blood 5+ (NEGATIVE) Urine Nitrite Negative (NEGATIVE) Urine Bilirubin Negative (NEGATIVE) Urine Urobilinogen Normal MG/DL (0.0-1.0) Urine Leukocyte Esterase 3+ (NEGATIVE) Urine RBC 10-15 /HPF (0 - 2) Urine WBC 5-10 /HPF (0 - 2) Urine Squamous Epithelial Cells Few /LPF (NONE/OCC) Urine Amorphous Sediment Few /LPF (NONE) Urine Bacteria Many /HPF (NONE) Urine Yeast Few /HPF (NONE) Sodium Level 125 mEQ/L (135-145) Potassium Level 4.7 mEQ/L (3.4-4.9) Chloride Level 84 mEQ/L (98-107) Carbon Dioxide Level 30 mEQ/L (20-30) Anion Gap 11 (5-15) Blood Urea Nitrogen 28 mg/dL (7-23) Creatinine 0.5 mg/dL (0.5-0.9) Estimat Glomerular Filtration Rate mL/min (>60) Glucose Level 117 mg/dL (74-106) Lactic Acid Level 2.30 mmol/L (0.66-2.22) 2.60 mmol/L (0.66-2.22) Calcium Level 8.4 mg/dL (8.6-10.2) Total Bilirubin 0.2 mg/dL (0.0-1.2) Aspartate Amino Transf (AST/SGOT) 26 U/L (5-40) Alanine Aminotransferase (ALT/SGPT) 44 U/L (3-33) Alkaline Phosphatase 216 U/L (35-104) Total Creatine Kinase 28 U/L (26-140) Creatine Kinase MB < 1.5 ng/mL (< 3.8) Creatine Kinase MB Relative Index Troponin I < 0.30 ng/mL (<=0.30) Total Protein 6.1 g/dL (6.6-8.7) Albumin 2.2 g/dL (3.5-5.2) Globulin 3.9 g/dL Albumin/Globulin Ratio 0.5 (1.0-2.7) EKG Diagnostic Results Rate: tachycardiac Rhythm: NSR ST Segments: no acute changes ASA given to the pt in ED: No Rhythm Strip Diag. Results EP Interpretation: yes Rhythm: NSR, no PVC's, no ectopy Chest X-Ray Diagnostic Results Chest X-Ray Diagnostic Results : Chest X-Ray Ordered: Yes # of Views/Limited/Complete: 1 View Indication: Shortness of Breath EP Interpretation: Yes Interpretation: no pneumothorax, no acute cardiopulmonary disease, other - bilateral atelectasis. interstitial changes Impression: Other - pneumonia Interpreting ER Provider: Electronically signed by Clint Hernandez MD Last Vital Signs Date Time Temp Pulse Resp B/P Pulse Ox O2 Delivery O2 Flow Rate FiO2 01/15/17 21:51 100.8 119 18 123/51 100 Trach Collar 6.0 Status: improved Disposition: ADMITTED INPATIENT Condition: Serious Referrals: HARIS CATALAN (PCP) CLINT HERNANDEZ M.D. Jan 16, 2017 01:51
[2017-01-16] MEDS ORDERED: Acetaminophen 650mg/20.3ml GT ONE (05:45)
--- NOTE | 2017-01-16 08:19 | History & Physical ---
History and Physical History & Physicial 81 year old female presents with tachycardia and elevated WBC. Patient admitted for possible sepsis. Patient unable to give any history. Chart reviewed in detail; Patient acutely ill requiring admission PMH SDH hypothyroid GERD Trach GT Chronic encephalopathy MEDS noted Allergies noted Social History SNF patient; bed bound Physical Exam WDWN NAD chronically ill reduced breath sounds bilaterally without rhonchi or wheeze [id number] without MRG NABS nontender no HSM; GT, no distention trach no CCE nonfocal; reduced ROM decub noted Laboratory Tests Test 01/15/17 21:15 01/15/17 21:30 01/15/17 23:11 Prothrombin Time 10.7 SEC (9.30-11.50) Prothromb Time International Ratio 1.0 (0.9-1.1) Activated Partial Thromboplast Time 34 SEC (23-33) H White Blood Count 29.5 K/UL (4.8-10.8) *H Red Blood Count 2.55 M/UL (4.20-5.40) L Hemoglobin 7.6 G/DL (12.0-16.0) L Hematocrit 22.9 % (37.0-47.0) L Mean Corpuscular Volume 90 FL (80-99) Mean Corpuscular Hemoglobin 29.8 PG (27.0-31.0) Mean Corpuscular Hemoglobin Concent 33.2 G/DL (32.0-36.0) Red Cell Distribution Width 15.4 % (11.6-14.8) H Platelet Count 756 K/UL (150-450) H Mean Platelet Volume 7.2 FL (6.5-10.1) Neutrophils (%) (Auto) % (45.0-75.0) Lymphocytes (%) (Auto) % (20.0-45.0) Monocytes (%) (Auto) % (1.0-10.0) Eosinophils (%) (Auto) % (0.0-3.0) Basophils (%) (Auto) % (0.0-2.0) Differential Total Cells Counted 100 Neutrophils % (Manual) 81 % (45-75) H Lymphocytes % (Manual) 6 % (20-45) L Monocytes % (Manual) 3 % (1-10) Eosinophils % (Manual) 0 % (0-3) Basophils % (Manual) 0 % (0-2) Band Neutrophils 10 % (0-8) H Platelet Estimate Increased H Platelet Morphology Normal Hypochromasia 1+ Anisocytosis 1+ Urine Color Yellow Urine Appearance Slightly cloudy Urine pH 6 (4.5-8.0) Urine Specific [place] 1.010 (1.005-1.035) Urine Protein 2+ (NEGATIVE) H Urine Glucose (UA) Negative (NEGATIVE) Urine Ketones Negative (NEGATIVE) Urine Occult Blood 5+ (NEGATIVE) H Urine Nitrite Negative (NEGATIVE) Urine Bilirubin Negative (NEGATIVE) Urine Urobilinogen Normal MG/DL (0.0-1.0) Urine Leukocyte Esterase 3+ (NEGATIVE) H Urine RBC 10-15 /HPF (0 - 2) H Urine WBC 5-10 /HPF (0 - 2) H Urine Squamous Epithelial Cells Few /LPF (NONE/OCC) Urine Amorphous Sediment Few /LPF (NONE) H Urine Bacteria Many /HPF (NONE) H Urine Yeast Few /HPF (NONE) H Sodium Level 125 mEQ/L (135-145) L Potassium Level 4.7 mEQ/L (3.4-4.9) Chloride Level 84 mEQ/L (98-107) L Carbon Dioxide Level 30 mEQ/L (20-30) Anion Gap 11 (5-15) Blood Urea Nitrogen 28 mg/dL (7-23) H Creatinine 0.5 mg/dL (0.5-0.9) Estimat Glomerular Filtration Rate mL/min (>60) Glucose Level 117 mg/dL (74-106) H Lactic Acid Level 2.30 mmol/L (0.66-2.22) H 2.60 mmol/L (0.66-2.22) H Calcium Level 8.4 mg/dL (8.6-10.2) L Total Bilirubin 0.2 mg/dL (0.0-1.2) Aspartate Amino Transf (AST/SGOT) 26 U/L (5-40) Alanine Aminotransferase (ALT/SGPT) 44 U/L (3-33) H Alkaline Phosphatase 216 U/L (35-104) H Total Creatine Kinase 28 U/L (26-140) Creatine Kinase MB < 1.5 ng/mL (< 3.8) Creatine Kinase MB Relative Index Troponin I < 0.30 ng/mL (<=0.30) Total Protein 6.1 g/dL (6.6-8.7) L Albumin 2.2 g/dL (3.5-5.2) L Globulin 3.9 g/dL Albumin/Globulin Ratio 0.5 (1.0-2.7) L IMPRESSION 1. Chronic encephalopathy 2. Sepsis. 3. History of Pneumonia with Acinetobacter multidrug resistant and Stenotrophomonas. 4. History of Urinary tract infection with Klebsiella and Escherichia coli. 5. Chronic respiratory failure. 6. Tracheostomy status. 7. Chronic encephalopathy. 8. Anemia, status post blood transfusion. 9. Dysphagia, gastrostomy tube. 10. History of Clostridium difficile colitis. 11. Sacral decubitus 12. hyponatremia PLAN care noted IV antibiotics ID evaluation respiratory care Ventilatory care SNF meds supportive care suction no wean oxygen therapy prognosis guarded HARIS ACEVEDO Jan 16, 2017 08:19
[2017-01-16] MEDS: Vitamin A&D Oint 2oz Tube TOPIC SCH ×2 (10:03→21:00)
[2017-01-16] MEDS ORDERED: EPOGEN10000 UNIT SUBQ (10:37)
--- NOTE | 2017-01-16 11:30 | Diagnostic Imaging Report ---
Indication: Dyspnea Comparison: 12/03/16 A single view chest radiograph was obtained. Findings: Interstitial opacities and vascular prominence demonstrated within the lungs bilaterally. There is a left basilar density that is probably a small effusion. Tracheostomy noted. Bones are osteopenic. Right basilar atelectasis noted Impression: Suspected mild interstitial edema. Possible left pleural effusion. Mild basal atelectasis
[2017-01-16 12:16] LABS: OTHERS PATHOLOGIST COMMENT
[2017-01-16] MEDS: metroNIDAZOLE 500mg tab ORAL SCH ×2 (14:08→23:31)
--- NOTE | 2017-01-16 14:15 | Consultation ---
DATE OF CONSULTATION: 01/16/2017 INFECTIOUS DISEASES CONSULTATION REFERRING PHYSICIAN: Santos Catalan M.D. REASON FOR CONSULTATION: Possible leukocytosis. HISTORY OF PRESENTING ILLNESS: This is an 81-year-old lady with history of respiratory failure, status post tracheostomy, on a T-tube, who comes in with tachycardia and leukocytosis. An Infectious Diseases consultation has been obtained for antibiotics. PAST MEDICAL HISTORY: 1. History of subdural hematoma. 2. Hypothyroidism. 3. History of GERD. 4. Chronic encephalopathy. 5. Respiratory failure, status post tracheostomy. 6. Status post G-tube placement. MEDICATIONS: As an inpatient, the patient is on clotrimazole, vitamin A and D, and Zofran. ALLERGIES: No known drug allergies. SOCIAL HISTORY: The patient is a resident of a [facility] facility. Rest of the history is unknown. FAMILY HISTORY: Unknown. REVIEW OF SYSTEMS: Unable to obtain currently. PHYSICAL EXAMINATION: VITAL SIGNS: Temperature of 98 degrees, T-max of 100.8, pulse of 120, respiratory of 19, blood pressure 106/59, and O2 saturation of 100%. HEENT: Pupils equally reactive to light and accommodation. Mouth appears clean without thrush. NECK: Supple. No adenopathy. No JVD. T-Tube site appears clean. CARDIOVASCULAR: Regular rate and rhythm. No murmurs. LUNGS: Clear to auscultation bilaterally. No crackles. No wheezes. ABDOMEN: Soft and nontender. No organomegaly. G-tube site appears clean. EXTREMITIES: No cyanosis, no clubbing, and no edema. LABORATORY DATA: White count 29.5, hemoglobin 7.6, hematocrit 22.9, MCV 90, platelet count of 756,000, and neutrophils of 81%. Sodium 125, potassium 4.7, chloride 84, bicarbonate 30, BUN 28, creatinine 0.5, glucose 117, and calcium 8.4. Total bilirubin 0.2. AST 26, ALT 44, and alkaline phosphatase 216. CK of 28 and CK-MB less than 1.5. Troponin less than 0.3. Total protein 6.1. Albumin 2.2. UA showing 5 to 10 white cells. Urine cultures are pending. Blood cultures are also pending. ASSESSMENT: 1. This is an 81-year-old lady with history of respiratory failure, status post tracheostomy and subdural hematoma, who comes in and is found to have a leukocytosis. She will be concerned regarding urinary tract infection as a possibility. 2. We would also be concerned regarding a pneumonia as a possibility or recurrent Clostridium difficile colitis. PLAN: 1. We will order stool for C. difficile colitis. 2. We will order sputum for Gram stain and culture. 3. We will start the patient on vancomycin, Zosyn, and Flagyl. 4. We will follow up cultures and adjust antibiotics accordingly. I would like to thank, Dr. Catalan, for this consultation. Piotr Stringer M.D. DR: MARISSA JOB#: [id number] CC: Santos Catalan M.D.; Fax#: [phone]
[2017-01-16] MEDS ORDERED: Vancomycin 750mg/D5W 275ml IVPB SCH ×2 (17:00)
[2017-01-17] VITALS: BP 126/68
[2017-01-17 04:00] VITALS: BP 136/68
[2017-01-17 05:50] LABS: MEAN CORPUSCULAR HEMOGLOBIN 30.7 PG (27.0-31.0); MEAN CORPUSCULAR HGB CONC 33.8 G/DL (32.0-36.0); MEAN CORPUSCULAR VOLUME 91 FL (80-99); MEAN PLATELET VOLUME 6.7 FL (6.5-10.1); PLATELET COUNT 878 K/UL (150-450); RED BLOOD COUNT 2.92 M/UL (4.20-5.40); RED CELL DISTRIBUTION WIDTH 14.8 % (11.6-14.8)
[2017-01-17 06:14] LABS: ANION GAP 16 (5-15); CALCIUM 8.1 mg/dL (8.6-10.2); CARBON DIOXIDE 23 mEQ/L (20-30); CHLORIDE 96 mEQ/L (98-107); CREATININE 0.2 mg/dL (0.5-0.9); HEMOLYSIS 0; POTASSIUM 3.7 mEQ/L (3.4-4.9); SODIUM 135 mEQ/L (135-145)
[2017-01-17] MEDS: Atenolol 25mg tab GT SCH ×2 (07:02→18:16)
[2017-01-17] MEDS: metroNIDAZOLE 500mg tab ORAL SCH ×3 (07:02→22:24)
[2017-01-17 08:00] VITALS: BP 117/62
[2017-01-17 08:05] LABS: ANISOCYTOSIS 1+; BAND NEUTROPHILS % (MANUAL) 2 % (0-8); BASOPHILS % (MANUAL) 0 % (0-2); EOSINOPHILS % (MANUAL) 0 % (0-3); HYPOCHROMASIA 1+; LYMPHOCYTES % (MANUAL) 6 % (20-45); NEUTROPHILS % (MANUAL) 88 % (45-75); PLATELET ESTIMATE INCREASED; PLATELET MORPHOLOGY NORMAL; TOTAL CELLS COUNTED 100
--- NOTE | 2017-01-17 08:23 | General Progress Note ---
Assessment/Plan Assessment/Plan IMPRESSION 1. Chronic encephalopathy 2. Sepsis. 3. History of Pneumonia with Acinetobacter multidrug resistant and Stenotrophomonas. 4. History of Urinary tract infection with Klebsiella and Escherichia coli. 5. Chronic respiratory failure. 6. Tracheostomy status. 7. Chronic encephalopathy. 8. Anemia, status post blood transfusion. 9. Dysphagia, gastrostomy tube. 10. History of Clostridium difficile colitis. 11. Sacral decubitus 12. hyponatremia PLAN care noted IV antibiotics add beta augustine ID evaluation appreciated respiratory care Ventilatory care SNF meds supportive care suction no wean oxygen therapy prognosis guarded DNR Subjective Allergies: Coded Allergies: NO KNOWN DRUG ALLERGIES (Verified Allergy, Unknown, 12/02/16) Subjective remains ill tachy Objective Last 24 Hour Vital Signs Date Time Temp Pulse Resp B/P Pulse Ox O2 Delivery O2 Flow Rate FiO2 01/17/17 07:02 134 138/68 01/17/17 06:44 99 T-piece 8.0 35 01/17/17 06:44 T-piece 8.0 35 01/17/17 04:00 98.7 134 20 136/68 99 Bi-pap 01/17/17 04:00 8.0 35 01/17/17 04:00 138 01/17/17 01:17 T-piece 8.0 35 01/17/17 01:16 98 T-piece 8.0 35 01/17/17 00:00 124 01/17/17 00:00 98.4 126 24 126/68 96 T-piece 01/17/17 00:00 8.0 35 01/16/17 20:00 8.0 35 01/16/17 20:00 98.0 111 24 121/61 99 T-piece 01/16/17 19:30 109 01/16/17 19:02 97 T-piece 8.0 35 01/16/17 19:02 T-piece 8.0 35 01/16/17 16:00 98.3 116 18 105/54 100 T-piece 40 01/16/17 16:00 117 01/16/17 16:00 6.0 01/16/17 14:52 97.4 01/16/17 14:40 T-piece 8.0 35 01/16/17 14:40 T-piece 8.0 35 01/16/17 12:00 97.4 127 18 118/59 100 T-piece 40 01/16/17 12:00 6.0 01/16/17 12:00 127 01/16/17 08:41 T-piece 8.0 35 01/16/17 08:41 T-piece 8.0 35 Intake and Output 01/16/17 01/17/17 19:00 07:00 Intake Total 50 ml Output Total 450 ml 400 ml Balance -450 ml -350 ml Tube Feeding 50 ml Output Urine Total 450 ml 400 ml # Bowel Movements 1 3 Laboratory Tests 01/17/17 04:50: White Blood Count 27.0*H, Red Blood Count 2.92L, Hemoglobin 9.0L, Hematocrit 26.5L, Mean Corpuscular Volume 91, Mean Corpuscular Hemoglobin 30.7, Mean Corpuscular Hemoglobin Concent 33.8, Red Cell Distribution Width 14.8, Platelet Count 878H, Mean Platelet Volume 6.7, Neutrophils (%) (Auto) , Lymphocytes (%) ( Auto) , Monocytes (%) (Auto) , Eosinophils (%) (Auto) , Basophils (%) (Auto) , Differential Total Cells Counted 100, Neutrophils % (Manual) 88H, Lymphocytes % (Manual) 6L, Monocytes % (Manual) 4, Eosinophils % (Manual) 0, Basophils % ( Manual) 0, Band Neutrophils 2, Platelet Estimate IncreasedH, Platelet Morphology Normal, Hypochromasia 1+, Anisocytosis 1+, Sodium Level 135, Potassium Level 3.7, Chloride Level 96L, Carbon Dioxide Level 23, Anion Gap 16H , Blood Urea Nitrogen 11, Creatinine 0.2#L, Estimat Glomerular Filtration Rate , Glucose Level 123H, Calcium Level 8.1L Height (Feet): 4 Height (Inches): 9.00 Weight (Pounds): 85 Objective WDWN NAD reduced breath sounds bilaterally without rhonchi or wheeze [id number] tachy without MRG NABS nontender no HSM no CCE nonfocal contractures HARIS ACEVEDO Jan 17, 2017 08:23
[2017-01-17] MEDS: Vitamin A&D Oint 2oz Tube TOPIC SCH ×2 (09:59→20:33)
--- NOTE | 2017-01-17 11:46 | Infectious Diseases Prog Note ---
Assessment/Plan Assessment/Plan antibiotics : vancomycin iv, zosyn, flagyl A 1. VRE UTI 2, leucocytosis improving 3. respiratory failure s/p tracheostomy 4. history of c.diff colitis 5. SDH P 1. continue flagyl 2. dc vancomycin iv, zosyn 3. start linezolid 4. will follow up cultures Subjective ROS Limited/Unobtainable: Yes Allergies: Coded Allergies: NO KNOWN DRUG ALLERGIES (Verified Allergy, Unknown, 12/02/16) Objective Vital Signs Last 24 Hour Vital Signs Date Time Temp Pulse Resp B/P Pulse Ox O2 Delivery O2 Flow Rate FiO2 01/17/17 08:00 98.2 112 18 117/62 98 T-piece 35 01/17/17 07:46 110 01/17/17 07:02 134 138/68 01/17/17 06:44 99 T-piece 8.0 35 01/17/17 06:44 T-piece 8.0 35 01/17/17 04:00 98.7 134 20 136/68 99 Bi-pap 01/17/17 04:00 8.0 35 01/17/17 04:00 138 01/17/17 01:17 T-piece 8.0 35 01/17/17 01:16 98 T-piece 8.0 35 01/17/17 00:00 124 01/17/17 00:00 98.4 126 24 126/68 96 T-piece 01/17/17 00:00 8.0 35 01/16/17 20:00 8.0 35 01/16/17 20:00 98.0 111 24 121/61 99 T-piece 01/16/17 19:30 109 01/16/17 19:02 97 T-piece 8.0 35 01/16/17 19:02 T-piece 8.0 35 01/16/17 16:00 98.3 116 18 105/54 100 T-piece 40 01/16/17 16:00 117 01/16/17 16:00 6.0 01/16/17 14:52 97.4 01/16/17 14:40 T-piece 8.0 35 01/16/17 14:40 T-piece 8.0 35 01/16/17 12:00 97.4 127 18 118/59 100 T-piece 40 01/16/17 12:00 6.0 01/16/17 12:00 127 Height (Feet): 4 Height (Inches): 9.00 Weight (Pounds): 85 HEENT: status post trach Respiratory/Chest: lungs clear Cardiovascular: normal rate, regular rhythm, no gallop/murmur Abdomen: soft, non tender, other - GT Extremities: no edema Microbiology Date/Time Source Procedure Growth Status 01/15/17 21:30 Blood Blood Culture - Preliminary NO GROWTH AFTER 24 HOURS Resulted 01/15/17 21:15 Blood Blood Culture - Preliminary NO GROWTH AFTER 24 HOURS Resulted 01/15/17 21:30 Nasal Nares MRSA Culture - Final NO METHICILLIN RESISTANT STAPH AUREUS... Complete 01/15/17 21:30 Urine,Clean Catch Urine Culture - Preliminary Resulted 01/15/17 21:30 Rectum VRE Culture - Final Enterococcus Faecalis - Vre Complete Laboratory Tests Test 01/17/17 04:50 White Blood Count 27.0 K/UL (4.8-10.8) *H Red Blood Count 2.92 M/UL (4.20-5.40) L Hemoglobin 9.0 G/DL (12.0-16.0) L Hematocrit 26.5 % (37.0-47.0) L Mean Corpuscular Volume 91 FL (80-99) Mean Corpuscular Hemoglobin 30.7 PG (27.0-31.0) Mean Corpuscular Hemoglobin Concent 33.8 G/DL (32.0-36.0) Red Cell Distribution Width 14.8 % (11.6-14.8) Platelet Count 878 K/UL (150-450) H Mean Platelet Volume 6.7 FL (6.5-10.1) Neutrophils (%) (Auto) % (45.0-75.0) Lymphocytes (%) (Auto) % (20.0-45.0) Monocytes (%) (Auto) % (1.0-10.0) Eosinophils (%) (Auto) % (0.0-3.0) Basophils (%) (Auto) % (0.0-2.0) Differential Total Cells Counted 100 Neutrophils % (Manual) 88 % (45-75) H Lymphocytes % (Manual) 6 % (20-45) L Monocytes % (Manual) 4 % (1-10) Eosinophils % (Manual) 0 % (0-3) Basophils % (Manual) 0 % (0-2) Band Neutrophils 2 % (0-8) Platelet Estimate Increased H Platelet Morphology Normal Hypochromasia 1+ Anisocytosis 1+ Sodium Level 135 mEQ/L (135-145) Potassium Level 3.7 mEQ/L (3.4-4.9) Chloride Level 96 mEQ/L (98-107) L Carbon Dioxide Level 23 mEQ/L (20-30) Anion Gap 16 (5-15) H Blood Urea Nitrogen 11 mg/dL (7-23) Creatinine 0.2 mg/dL (0.5-0.9) #L Estimat Glomerular Filtration Rate mL/min (>60) Glucose Level 123 mg/dL (74-106) H Calcium Level 8.1 mg/dL (8.6-10.2) SHELLEY CLAIRE Jan 17, 2017 11:46
[2017-01-17 12:00] VITALS: BP 125/61
[2017-01-17 16:00] VITALS: BP 127/62
--- NOTE | 2017-01-17 16:44 | Cardiology Report ---
APPROVED REPORT EKG Measurement Heart [id number] Sinus tachycardia with premature supraventricular complexes Low voltage QRS Nonspecific ST and T wave abnormality Abnormal ECG
[2017-01-17 20:17] VITALS: BP 142/76
--- NOTE | 2017-01-17 21:39 | Wound Care Consultation ---
Wound Assessment Wound Assessment #1: Wound Number: #1 Wound Present on Admission: Yes New Wound: No Status Change of Wound: No Wound Location Body Site Modif: mid Wound Location Body Site: sacral Wound Type: pressure ulcer Phil Test: Does not Phil Pressure Ulcer Stage: IV/unstageable Wound Thickness: Full Thickness Wound Length: 5.0 Wound Width: 6.5 Wound Depth: utd Percent of Wound [place]/Red: 60 Wound Drainage Description: Serosanguineous Wound Drainage Amount: Copious Wound Drainage Odor: None/Absent Tissue Surrounding Wound: Denuded - and macerated that extended to sacrococcygeal and both buttocks Wound General Appearance: Reddened, Draining, Unapproximated Wound Assessment #2: Wound Number: #2 Wound Present on Admission: Yes New Wound: No Status Change of Wound: No Wound Location Body Site Modif: mid, upper Wound Location Body Site: thoracic spine Wound Type: pressure ulcer Phil Test: Does not Phil Pressure Ulcer Stage: IV/unstageable Wound Thickness: Full Thickness Wound Length: 5.5 Wound Width: 3.5 Wound Depth: 0.3 Percent of Wound [place]/Red: 80 Percent of Wound Bed Yellow/Wh: 20 Wound Drainage Description: Serosanguineous Wound Drainage Amount: Moderate Wound Drainage Odor: None/Absent Tissue Surrounding Wound: Macerated Wound General Appearance: Reddened, Draining Wound Assessment #3: Wound Number: #3 Wound Present on Admission: Yes New Wound: No Status Change of Wound: No Wound Location Body Site: perineal area Wound Type: chemical burn Phil Test: Does not Phil Percent of Wound [place]/Red: 100 Wound Drainage Amount: None Wound Drainage Odor: None/Absent Tissue Surrounding Wound: Erythemic Wound General Appearance: Reddened Wound Comment #1 Sacral unstageable pressure ulcer. Surrounding skin denuded, macerated and non blanchable redness that extended to sacrococcygeal and both buttocks. #2 Mid thoracic spine stage IV pressure ulcer #3 Chemical burn on perineal area Recommendation -Sacral unstageable pressure ulcer. Surrounding skin denuded, macerated and non blanchable redness that extended to sacrococcygeal and both buttocks and Mid thoracic spine stage IV pressure ulcer Cleanse with saline, pat dry, apply Triad to wound bed and surrounding skin, apply calcium alginate to wound bed, cover with bordered gauze daily and PRN soiled/ dislodged. -Chemical burn on perineal area Cleanse with saline, pat dry, apply Triad cream BID and leave area open to air -Keep clean and dry -Turn and reposition -Optimize nutrition -Low air loss mattress -Offload both heels -Heel protector on both heels -Assess and f/u accordingly for any changes CEDRIC HIDALGO RN Jan 17, 2017 21:39
[2017-01-18 00:37] VITALS: BP 141/71
[2017-01-18 04:00] VITALS: BP 140/80
[2017-01-18] MEDS: metroNIDAZOLE 500mg tab GT SCH ×3 (05:51→20:28)
[2017-01-18] MEDS: Atenolol 25mg tab GT SCH ×2 (05:51→18:08)
[2017-01-18 08:00] VITALS: BP 148/80
--- NOTE | 2017-01-18 08:42 | General Progress Note ---
Assessment/Plan Assessment/Plan IMPRESSION 1. Chronic encephalopathy 2. Sepsis. 3. History of Pneumonia with Acinetobacter multidrug resistant and Stenotrophomonas. 4. History of Urinary tract infection with Klebsiella and Escherichia coli. 5. Chronic respiratory failure. 6. Tracheostomy status. 7. Chronic encephalopathy. 8. Anemia, status post blood transfusion. 9. Dysphagia, gastrostomy tube. 10. History of Clostridium difficile colitis. 11. Sacral decubitus 12. hyponatremia PLAN care noted IV antibiotics added beta augustine ID evaluation appreciated respiratory care Ventilatory care SNF meds supportive care suction no wean oxygen therapy prognosis guarded DNR transfer when vital signs improved and afebrile Subjective Allergies: Coded Allergies: NO KNOWN DRUG ALLERGIES (Verified Allergy, Unknown, 12/02/16) Subjective remains ill tachy fevers noted Objective Last 24 Hour Vital Signs Date Time Temp Pulse Resp B/P Pulse Ox O2 Delivery O2 Flow Rate FiO2 01/18/17 08:00 114 01/18/17 08:00 8.0 35 01/18/17 08:00 99.8 114 25 148/80 96 T-piece 40 01/18/17 07:18 95 T-piece 10.0 35 01/18/17 07:18 T-piece 10.0 35 01/18/17 05:51 123 136/63 01/18/17 04:00 97.9 124 18 140/80 94 Venturi Mask 01/18/17 04:00 8.0 35 01/18/17 04:00 125 01/18/17 01:18 95 T-piece 8.0 35 01/18/17 01:18 T-piece 8.0 35 01/18/17 00:37 97.5 118 17 141/71 93 Mechanical Ventilator 01/18/17 00:00 121 01/18/17 00:00 8.0 35 01/17/17 20:17 97.9 113 18 142/76 95 Room Air 01/17/17 20:00 8.0 35 01/17/17 20:00 113 01/17/17 19:13 T-piece 8.0 35 01/17/17 19:13 96 T-piece 8.0 35 01/17/17 18:16 120 127/62 01/17/17 16:00 8.0 35 01/17/17 16:00 98.9 120 18 127/62 98 T-piece 35 01/17/17 15:16 115 01/17/17 12:46 98 T-piece 8.0 35 01/17/17 12:00 98.2 116 19 125/61 97 T-piece 35 01/17/17 12:00 115 01/17/17 12:00 8.0 35 Intake and Output 01/17/17 01/18/17 19:00 07:00 Intake Total 1617.5 ml 2420 ml Output Total 700 ml 625 ml Balance 917.5 ml 1795 ml Free Water 50 ml IV Total 1217.5 ml 1700 ml Tube Feeding 350 ml 600 ml Other 120 ml Output Urine Total 600 ml 500 ml Stool Total 100 ml 125 ml Labs Test 01/15/17 21:15 01/15/17 21:30 01/15/17 23:11 01/17/17 04:50 Prothrombin Time 10.7 SEC (9.30-11.50) Prothromb Time International Ratio 1.0 (0.9-1.1) Activated Partial Thromboplast Time 34 SEC (23-33) White Blood Count 29.5 K/UL (4.8-10.8) 27.0 K/UL (4.8-10.8) Red Blood Count 2.55 M/UL (4.20-5.40) 2.92 M/UL (4.20-5.40) Hemoglobin 7.6 G/DL (12.0-16.0) 9.0 G/DL (12.0-16.0) Hematocrit 22.9 % (37.0-47.0) 26.5 % (37.0-47.0) Mean Corpuscular Volume 90 FL (80-99) 91 FL (80-99) Mean Corpuscular Hemoglobin 29.8 PG (27.0-31.0) 30.7 PG (27.0-31.0) Mean Corpuscular Hemoglobin Concent 33.2 G/DL (32.0-36.0) 33.8 G/DL (32.0-36.0) Red Cell Distribution Width 15.4 % (11.6-14.8) 14.8 % (11.6-14.8) Platelet Count 756 K/UL (150-450) 878 K/UL (150-450) Mean Platelet Volume 7.2 FL (6.5-10.1) 6.7 FL (6.5-10.1) Neutrophils (%) (Auto) % (45.0-75.0) % (45.0-75.0) Lymphocytes (%) (Auto) % (20.0-45.0) % (20.0-45.0) Monocytes (%) (Auto) % (1.0-10.0) % (1.0-10.0) Eosinophils (%) (Auto) % (0.0-3.0) % (0.0-3.0) Basophils (%) (Auto) % (0.0-2.0) % (0.0-2.0) Differential Total Cells Counted 100 100 Neutrophils % (Manual) 81 % (45-75) 88 % (45-75) Lymphocytes % (Manual) 6 % (20-45) 6 % (20-45) Monocytes % (Manual) 3 % (1-10) 4 % (1-10) Eosinophils % (Manual) 0 % (0-3) 0 % (0-3) Basophils % (Manual) 0 % (0-2) 0 % (0-2) Band Neutrophils 10 % (0-8) 2 % (0-8) Other Cell Type Pathologist comment Platelet Estimate Increased Increased Platelet Morphology Normal Normal Hypochromasia 1+ 1+ Anisocytosis 1+ 1+ Urine Color Yellow Urine Appearance Slightly cloudy Urine pH 6 (4.5-8.0) Urine Specific [place] 1.010 (1.005-1.035) Urine Protein 2+ (NEGATIVE) Urine Glucose (UA) Negative (NEGATIVE) Urine Ketones Negative (NEGATIVE) Urine Occult Blood 5+ (NEGATIVE) Urine Nitrite Negative (NEGATIVE) Urine Bilirubin Negative (NEGATIVE) Urine Urobilinogen Normal MG/DL (0.0-1.0) Urine Leukocyte Esterase 3+ (NEGATIVE) Urine RBC 10-15 /HPF (0 - 2) Urine WBC 5-10 /HPF (0 - 2) Urine Squamous Epithelial Cells Few /LPF (NONE/OCC) Urine Amorphous Sediment Few /LPF (NONE) Urine Bacteria Many /HPF (NONE) Urine Yeast Few /HPF (NONE) Sodium Level 125 mEQ/L (135-145) 135 mEQ/L (135-145) Potassium Level 4.7 mEQ/L (3.4-4.9) 3.7 mEQ/L (3.4-4.9) Chloride Level 84 mEQ/L (98-107) 96 mEQ/L (98-107) Carbon Dioxide Level 30 mEQ/L (20-30) 23 mEQ/L (20-30) Anion Gap 11 (5-15) 16 (5-15) Blood Urea Nitrogen 28 mg/dL (7-23) 11 mg/dL (7-23) Creatinine 0.5 mg/dL (0.5-0.9) 0.2 mg/dL (0.5-0.9) Estimat Glomerular Filtration Rate mL/min (>60) mL/min (>60) Glucose Level 117 mg/dL (74-106) 123 mg/dL (74-106) Lactic Acid Level 2.30 mmol/L (0.66-2.22) 2.60 mmol/L (0.66-2.22) Calcium Level 8.4 mg/dL (8.6-10.2) 8.1 mg/dL (8.6-10.2) Total Bilirubin 0.2 mg/dL (0.0-1.2) Aspartate Amino Transf (AST/SGOT) 26 U/L (5-40) Alanine Aminotransferase (ALT/SGPT) 44 U/L (3-33) Alkaline Phosphatase 216 U/L (35-104) Total Creatine Kinase 28 U/L (26-140) Creatine Kinase MB < 1.5 ng/mL (< 3.8) Creatine Kinase MB Relative Index Troponin I < 0.30 ng/mL (<=0.30) Total Protein 6.1 g/dL (6.6-8.7) Albumin 2.2 g/dL (3.5-5.2) Globulin 3.9 g/dL Albumin/Globulin Ratio 0.5 (1.0-2.7) Height (Feet): 4 Height (Inches): 9.00 Weight (Pounds): 85 Objective WDWN NAD reduced breath sounds bilaterally without rhonchi or wheeze S1S2RR tachy without MRG NABS nontender no HSM no CCE nonfocal contractures HARIS ACEVEDO Jan 18, 2017 08:42
[2017-01-18 09:20] LABS: MEAN CORPUSCULAR HEMOGLOBIN 30.7 PG (27.0-31.0); MEAN CORPUSCULAR HGB CONC 33.7 G/DL (32.0-36.0); MEAN CORPUSCULAR VOLUME 91 FL (80-99); MEAN PLATELET VOLUME 6.2 FL (6.5-10.1); PLATELET COUNT 964 K/UL (150-450); RED BLOOD COUNT 3.07 M/UL (4.20-5.40); RED CELL DISTRIBUTION WIDTH 15.4 % (11.6-14.8)
[2017-01-18 09:30] LABS: WHITE BLOOD COUNT 28.2 K/UL (4.8-10.8)
--- NOTE | 2017-01-18 09:52 | Infectious Diseases Prog Note ---
Assessment/Plan Assessment/Plan A; C. difficile colitis UTI Chronic respiratory failure Anemia Encephalopathy DAHIANA colonization P; Discontinue Zyvox, start on PO Vancomycin will f/u cultures Subjective ROS Limited/Unobtainable: Yes Allergies: Coded Allergies: NO KNOWN DRUG ALLERGIES (Verified Allergy, Unknown, 12/02/16) Objective Vital Signs Last 24 Hour Vital Signs Date Time Temp Pulse Resp B/P Pulse Ox O2 Delivery O2 Flow Rate FiO2 01/18/17 08:00 114 01/18/17 08:00 8.0 35 01/18/17 08:00 99.8 114 25 148/80 96 T-piece 40 01/18/17 07:18 95 T-piece 10.0 35 01/18/17 07:18 T-piece 10.0 35 01/18/17 05:51 123 136/63 01/18/17 04:00 97.9 124 18 140/80 94 Venturi Mask 01/18/17 04:00 8.0 35 01/18/17 04:00 125 01/18/17 01:18 95 T-piece 8.0 35 01/18/17 01:18 T-piece 8.0 35 01/18/17 00:37 97.5 118 17 141/71 93 Mechanical Ventilator 01/18/17 00:00 121 01/18/17 00:00 8.0 35 01/17/17 20:17 97.9 113 18 142/76 95 Room Air 01/17/17 20:00 8.0 35 01/17/17 20:00 113 01/17/17 19:13 T-piece 8.0 35 01/17/17 19:13 96 T-piece 8.0 35 01/17/17 18:16 120 127/62 01/17/17 16:00 8.0 35 01/17/17 16:00 98.9 120 18 127/62 98 T-piece 35 01/17/17 15:16 115 01/17/17 12:46 98 T-piece 8.0 35 01/17/17 12:00 98.2 116 19 125/61 97 T-piece 35 01/17/17 12:00 115 01/17/17 12:00 8.0 35 Height (Feet): 4 Height (Inches): 9.00 Weight (Pounds): 85 General Appearance: no acute distress, cachetic HEENT: status post trach Respiratory/Chest: rhonchi - bilaterally, other - on T-bar Cardiovascular: tachycardia Abdomen: soft, non tender, other - Gt feeding, rectal tube Extremities: no edema Skin: ulcers, other - sacral Neurologic/Psychiatric: unresponsiveness Microbiology Date/Time Source Procedure Growth Status 01/15/17 21:30 Blood Blood Culture - Preliminary NO GROWTH AFTER 48 HOURS Resulted 01/15/17 21:15 Blood Blood Culture - Preliminary NO GROWTH AFTER 48 HOURS Resulted 01/16/17 06:00 Wound Gram Stain - Final Resulted 01/16/17 06:00 Wound Wound Culture Pending Resulted 01/16/17 11:55 Sputum Gram Stain - Final Resulted 01/16/17 11:55 Sputum Culture - Preliminary Gram Negative Bacillus 1 Usual Upper Respiratory Ally Resulted 01/15/17 21:30 Nasal Nares MRSA Culture - Final NO METHICILLIN RESISTANT STAPH AUREUS... Complete 01/17/17 04:00 Stool Clostridium difficile Toxin Assay - Final Complete 01/15/17 21:30 Urine,Clean Catch Urine Culture - Preliminary Gram Negative Bacillus 1 Staphylococcus Species Resulted 01/15/17 21:30 Rectum VRE Culture - Final Enterococcus Faecalis - Vre Complete Laboratory Tests Test 01/18/17 09:02 White Blood Count 28.2 K/UL (4.8-10.8) *H Red Blood Count 3.07 M/UL (4.20-5.40) L Hemoglobin 9.4 G/DL (12.0-16.0) L Hematocrit 28.0 % (37.0-47.0) L Mean Corpuscular Volume 91 FL (80-99) Mean Corpuscular Hemoglobin 30.7 PG (27.0-31.0) Mean Corpuscular Hemoglobin Concent 33.7 G/DL (32.0-36.0) Red Cell Distribution Width 15.4 % (11.6-14.8) H Platelet Count 964 K/UL (150-450) H Mean Platelet Volume 6.2 FL (6.5-10.1) L Neutrophils (%) (Auto) % (45.0-75.0) Lymphocytes (%) (Auto) % (20.0-45.0) Monocytes (%) (Auto) % (1.0-10.0) Eosinophils (%) (Auto) % (0.0-3.0) Basophils (%) (Auto) % (0.0-2.0) Neutrophils % (Manual) Pending Lymphocytes % (Manual) Pending Platelet Estimate Pending Platelet Morphology Pending Current Medications Medications (Trade) Dose Ordered Sig/Bernadette Route PRN Reason Start Time Stop Time Status Last Admin Dose Admin Acetaminophen (Tylenol) 650 mg Q4H PRN GT Mild Pain/Temp > 100.5 01/18/17 01:45 02/17/17 01:44 Atenolol (Tenormin) 25 mg BID@0600,1800 GT 01/17/17 06:00 02/16/17 05:59 01/18/17 05:51 Clotrimazole (Lotrimin) 1 applic EVERY 12 HOURS TOPIC 01/16/17 10:00 02/15/17 09:59 01/17/17 20:34 Linezolid (Zyvox) 600 mg EVERY 12 HOURS GT 01/18/17 01:31 01/22/17 12:29 Metronidazole (Flagyl) 500 mg EVERY 8 HOURS GT 01/18/17 01:30 01/23/17 11:59 01/18/17 05:51 Ondansetron HCl 4 mg 4 mg Q6H PRN IVP Nausea & Vomiting 01/16/17 14:00 02/15/17 13:59 Sodium Chloride (Sodium Chloride 1000ml bag) 1,000 ml @ 150 mls/hr Q6H40M IV 01/16/17 05:45 02/15/17 05:44 01/18/17 05:50 Vitamin A/Vitamin D (A & D Oint) 1 applic EVERY 12 HOURS TOPIC 01/16/17 10:00 02/15/17 09:59 01/17/17 20:33 NHUNG COLEY Jan 18, 2017 09:52
[2017-01-18] MEDS: Vitamin A&D Oint 2oz Tube TOPIC SCH ×2 (10:00→20:27)
[2017-01-18 11:09] LABS: BAND NEUTROPHILS % (MANUAL) 4 % (0-8); BASOPHILS % (MANUAL) 0 % (0-2); EOSINOPHILS % (MANUAL) 0 % (0-3); LYMPHOCYTES % (MANUAL) 8 % (20-45); NEUTROPHILS % (MANUAL) 84 % (45-75); PLATELET ESTIMATE INCREASED; PLATELET MORPHOLOGY NORMAL; TOTAL CELLS COUNTED 100
[2017-01-18 11:11] LABS: ANISOCYTOSIS 1+
[2017-01-18] MEDS: Acetaminophen 650mg/20.3ml GT PRN (11:36)
[2017-01-18] MEDS ORDERED: NS 275ml ONE (11:38)
[2017-01-18] MEDS ORDERED: Tubing IV Secondary IV ONE (11:38)
[2017-01-18 12:00] VITALS: BP 150/87
[2017-01-18] MEDS: Vancomycin oral 125mg/2.5ml GT SCH ×3 (14:31→20:27)
[2017-01-18 16:00] VITALS: BP 122/72
[2017-01-18 20:00] VITALS: BP 155/85
[2017-01-19] VITALS: BP 134/75
[2017-01-19 04:00] VITALS: BP 133/70
[2017-01-19] MEDS: Atenolol 25mg tab GT SCH ×2 (05:25→17:28)
[2017-01-19] MEDS: metroNIDAZOLE 500mg tab GT SCH ×3 (05:25→22:09)
[2017-01-19 08:00] VITALS: BP 134/76
--- NOTE | 2017-01-19 08:10 | General Progress Note ---
Assessment/Plan Assessment/Plan IMPRESSION 1. Chronic encephalopathy 2. Sepsis. 3. History of Pneumonia with Acinetobacter multidrug resistant and Stenotrophomonas. 4. History of Urinary tract infection with Klebsiella and Escherichia coli. 5. Chronic respiratory failure. 6. Tracheostomy status. 7. Chronic encephalopathy. 8. Anemia, status post blood transfusion. 9. Dysphagia, gastrostomy tube. 10. History of Clostridium difficile colitis. 11. Sacral decubitus 12. hyponatremia PLAN care noted IV antibiotics on beta augustine ID evaluation appreciated respiratory care Ventilatory care SNF meds supportive care suction no wean oxygen therapy prognosis guarded DNR dc when vital signs improved and wbc improved Subjective ROS Limited/Unobtainable: Yes Allergies: Coded Allergies: NO KNOWN DRUG ALLERGIES (Verified Allergy, Unknown, 12/02/16) Subjective still tachy with high wbc not ready for dc Objective Last 24 Hour Vital Signs Date Time Temp Pulse Resp B/P Pulse Ox O2 Delivery O2 Flow Rate FiO2 01/19/17 05:25 104 133/70 01/19/17 04:00 97.9 104 31 133/70 97 T-piece 01/19/17 04:00 103 01/19/17 04:00 8.0 35 01/19/17 01:16 T-piece 10.0 35 01/19/17 01:15 96 T-piece 8.0 35 01/19/17 00:00 98.0 117 32 134/75 94 T-piece 01/19/17 00:00 120 01/19/17 00:00 8.0 35 01/18/17 20:00 98.8 110 32 155/85 95 T-piece 35 01/18/17 20:00 107 01/18/17 20:00 8.0 35 01/18/17 19:25 96 T-piece 8.0 35 01/18/17 19:25 T-piece 10.0 35 01/18/17 18:08 106 122/72 01/18/17 16:00 97.9 106 18 122/72 99 T-piece 40 01/18/17 16:00 8.0 35 01/18/17 16:00 106 01/18/17 14:32 98.3 01/18/17 13:30 95 T-piece 10.0 35 01/18/17 13:30 T-piece 10.0 35 01/18/17 12:00 99.0 120 25 150/87 95 T-piece 40 01/18/17 11:21 107 01/18/17 11:21 8.0 35 Intake and Output 01/18/17 01/19/17 19:00 07:00 Intake Total 2530 ml 2452.5 ml Output Total 650 ml 1181 ml Balance 1880 ml 1271.5 ml Free Water 150 ml IV Total 1780 ml 1792.5 ml Tube Feeding 600 ml 600 ml Other 60 ml Output Urine Total 500 ml 981 ml Stool Total 150 ml 200 ml Laboratory Tests 01/18/17 09:02: White Blood Count 28.2*H, Red Blood Count 3.07L, Hemoglobin 9.4L, Hematocrit 28.0L, Mean Corpuscular Volume 91, Mean Corpuscular Hemoglobin 30.7, Mean Corpuscular Hemoglobin Concent 33.7, Red Cell Distribution Width 15.4H, Platelet Count 964H, Mean Platelet Volume 6.2L, Neutrophils (%) (Auto) , Lymphocytes (%) (Auto) , Monocytes (%) (Auto) , Eosinophils (%) (Auto) , Basophils (%) (Auto) , Differential Total Cells Counted 100, Neutrophils % ( Manual) 84H, Lymphocytes % (Manual) 8L, Monocytes % (Manual) 4, Eosinophils % ( Manual) 0, Basophils % (Manual) 0, Band Neutrophils 4, Platelet Estimate IncreasedH, Platelet Morphology Normal, Anisocytosis 1+ Height (Feet): 4 Height (Inches): 9.00 Weight (Pounds): 85 Objective WDWN NAD reduced breath sounds bilaterally without rhonchi or wheeze S1S2RR tachy without MRG NABS nontender no HSM no CCE nonfocal contractures HARIS ACEVEDO Jan 19, 2017 08:10
[2017-01-19] MEDS: Vitamin A&D Oint 2oz Tube TOPIC SCH ×2 (08:28→21:00)
[2017-01-19] MEDS: Vancomycin oral 125mg/2.5ml GT SCH ×3 (08:48→21:00)
--- NOTE | 2017-01-19 11:29 | Infectious Diseases Prog Note ---
"Assessment/Plan Assessment/Plan antibiotics : vancomycin GT, GT flagyl A 1. c.diff colitis 2, leucocytosis 3. respiratory failure s/p tracheostomy 4. SDH 5. MRSA | pseudomonas UTI s/p rx P 1. continue flagyl, GT vancomycin 2. will follow up cultures Subjective ROS Limited/Unobtainable: Yes Allergies: Coded Allergies: NO KNOWN DRUG ALLERGIES (Verified Allergy, Unknown, 12/02/16) Objective Vital Signs Last 24 Hour Vital Signs Date Time Temp Pulse Resp B/P Pulse Ox O2 Delivery O2 Flow Rate FiO2 01/19/17 08:00 103 01/19/17 08:00 8.0 35 01/19/17 08:00 97.2 101 24 134/76 95 T-piece 01/19/17 05:25 104 133/70 01/19/17 04:00 97.9 104 31 133/70 97 T-piece 01/19/17 04:00 103 01/19/17 04:00 8.0 35 01/19/17 01:16 T-piece 10.0 35 01/19/17 01:15 96 T-piece 8.0 35 01/19/17 00:00 98.0 117 32 134/75 94 T-piece 01/19/17 00:00 120 01/19/17 00:00 8.0 35 01/18/17 20:00 98.8 110 32 155/85 95 T-piece 35 01/18/17 20:00 107 01/18/17 20:00 8.0 35 01/18/17 19:25 96 T-piece 8.0 35 01/18/17 19:25 T-piece 10.0 35 01/18/17 18:08 106 122/72 01/18/17 16:00 97.9 106 18 122/72 99 T-piece 40 01/18/17 16:00 8.0 35 01/18/17 16:00 106 01/18/17 14:32 98.3 01/18/17 13:30 95 T-piece 10.0 35 01/18/17 13:30 T-piece 10.0 35 01/18/17 12:00 99.0 120 25 150/87 95 T-piece 40 Height (Feet): 4 Height (Inches): 9.00 Weight (Pounds): 85 HEENT: status post trach Respiratory/Chest: lungs clear Cardiovascular: normal rate, regular rhythm, no gallop/murmur Abdomen: soft, non tender, other - GT Extremities: no edema Microbiology Date/Time Source Procedure Growth Status 01/16/17 11:55 Sputum Gram Stain - Final Complete 01/16/17 11:55 Sputum Culture - Final Pseudomonas Aeruginosa Usual Upper Respiratory Ally Complete 01/17/17 04:00 Stool Clostridium difficile Toxin Assay - Final Complete SHELLEY JOHNSON Jan 19, 2017 11:29"
[2017-01-19 12:00] VITALS: BP 115/57
[2017-01-19 16:00] VITALS: BP 132/75
[2017-01-19] MEDS: Gentamicin for inhalation INH SCH ×2 (17:29→23:03)
[2017-01-19 20:00] VITALS: BP 118/65
[2017-01-20] VITALS: BP_SYST 122; BP_SYST 147; BP_DIAS 65; BP_DIAS 72
[2017-01-20 04:00] VITALS: BP 120/68
[2017-01-20] MEDS: Atenolol 25mg tab GT SCH ×2 (05:37→17:08)
[2017-01-20] MEDS: metroNIDAZOLE 500mg tab GT SCH (05:38)
[2017-01-20] MEDS: Gentamicin for inhalation INH SCH (07:16)
[2017-01-20 08:00] VITALS: BP 97/49
[2017-01-20] MEDS: Vancomycin oral 125mg/2.5ml GT SCH ×4 (08:46→20:28)
[2017-01-20] MEDS: Vitamin A&D Oint 2oz Tube TOPIC SCH (08:47)
--- NOTE | 2017-01-20 08:49 | General Progress Note ---
Assessment/Plan Problem List: (1) Chronic respiratory failure ICD Codes: J96.10 - Chronic respiratory failure, unspecified whether with hypoxia or hypercapnia SNOMED: 14839126 Qualifiers: Qualified Codes: J96.10 - Chronic respiratory failure, unspecified whether with hypoxia or hypercapnia (2) UTI (urinary tract infection) ICD Codes: N39.0 - Urinary tract infection, site not specified SNOMED: 90022070 Qualifiers: Qualified Codes: N39.0 - Urinary tract infection, site not specified (3) Sepsis ICD Codes: A41.9 - Sepsis, unspecified organism SNOMED: 54789855 Qualifiers: Qualified Codes: A41.9 - Sepsis, unspecified organism (4) Anemia ICD Codes: D64.9 - Anemia, unspecified SNOMED: 695222719 Qualifiers: Qualified Codes: D64.9 - Anemia, unspecified Status: deteriorating Assessment/Plan check abg check cxr may need to go on vent abx per id resp care gt feeds dc ivf Subjective ROS Limited/Unobtainable: Yes Constitutional: Reports: malaise, weakness HEENT: Reports: no symptoms Cardiovascular: Reports: no symptoms Respiratory: Reports: cough, shortness of breath Gastrointestinal/Abdominal: Reports: difficulty swallowing Genitourinary: Reports: no symptoms Neurologic/Psychiatric: Reports: pre-existing deficit Endocrine: Reports: no symptoms Hematologic/Lymphatic: Reports: no symptoms Allergies: Coded Allergies: NO KNOWN DRUG ALLERGIES (Verified Allergy, Unknown, 12/02/16) All Systems: reviewed and negative except above Subjective +sob. decreased sats. poorly responsive at baseline. Objective Last 24 Hour Vital Signs Date Time Temp Pulse Resp B/P Pulse Ox O2 Delivery O2 Flow Rate FiO2 01/20/17 08:00 15.0 100 01/20/17 07:29 101 22 92 T-piece 8.0 35 01/20/17 07:16 92 T-piece 8.0 35 01/20/17 07:16 35 01/20/17 07:16 T-piece 8.0 35 01/20/17 07:16 105 22 92 01/20/17 05:37 109 124/75 01/20/17 04:16 111 01/20/17 04:00 15.0 100 01/20/17 04:00 97.6 79 18 120/68 98 Room Air 01/20/17 01:22 94 T-piece 8.0 35 01/20/17 01:22 T-piece 8.0 35 01/20/17 00:00 8.0 35 01/20/17 00:00 97.8 105 20 122/65 97 T-piece 35 01/20/17 00:00 97.3 106 20 147/72 94 Room Air 01/19/17 23:48 105 01/19/17 23:15 103 28 96 T-piece 8.0 35 01/19/17 23:04 35 01/19/17 23:04 107 29 94 T-piece 8.0 35 01/19/17 20:00 97.2 100 20 118/65 98 T-piece 35 01/19/17 20:00 8.0 35 01/19/17 20:00 97.2 100 20 118/65 97 Room Air 01/19/17 19:39 96 01/19/17 19:24 T-piece 8.0 35 01/19/17 19:24 97 T-piece 8.0 35 01/19/17 17:31 T-piece 8.0 35 01/19/17 17:30 T-piece 8.0 35 01/19/17 17:28 110 132/72 01/19/17 16:00 8.0 35 01/19/17 16:00 97.0 107 24 132/75 98 T-piece 01/19/17 16:00 107 01/19/17 13:03 97 T-piece 8.0 35 01/19/17 13:03 T-piece 8.0 35 01/19/17 12:00 97.2 108 24 115/57 95 T-piece 01/19/17 12:00 8.0 35 01/19/17 12:00 110 Intake and Output 01/19/17 01/20/17 19:00 07:00 Intake Total 2000 ml 2275 ml Output Total 2200 ml 1000 ml Balance -200 ml 1275 ml Free Water 50 ml 50 ml IV Total 1350 ml 1725 ml Tube Feeding 600 ml 500 ml Output Urine Total 2200 ml 1000 ml Stool Total 0 ml # Bowel Movements 40 Height (Feet): 4 Height (Inches): 9.00 Weight (Pounds): 85 General Appearance: confused, cachetic, thin Neck: supple Cardiovascular: normal peripheral pulses, normal rate, regular rhythm Respiratory/Chest: no accessory muscle use, rhonchi - bilaterally Abdomen: normal bowel sounds, non tender, soft, no organomegaly Edema: no edema noted Arm (L), no edema noted Arm (R), no edema noted Leg (L), no edema noted Leg (R), no edema noted Pedal (L), no edema noted Pedal (R), no edema noted Generalized CHANELLE MUÑOZ Jan 20, 2017 08:49
[2017-01-20 09:12] LABS: ABG ALLEN TEST POSITIVE; ABG BASE EXCESS -3.31; ABG PCO2 128.3 mmHg (35.0-45.0)
--- NOTE | 2017-01-20 10:54 | Infectious Diseases Prog Note ---
"Assessment/Plan Assessment/Plan antibiotics : vancomycin GT, GT flagyl, inhaled gentamicin A 1. c.diff colitis 2, leucocytosis 3. respiratory failure s/p tracheostomy 4. SDH 5. MRSA | pseudomonas UTI P 1. continue GT vancomycin 2. start iv amikacin, doxycycline 3. d/c flagyl, inhaled gentamicin 4. will follow up cultures Subjective ROS Limited/Unobtainable: Yes Allergies: Coded Allergies: NO KNOWN DRUG ALLERGIES (Verified Allergy, Unknown, 12/02/16) Objective Vital Signs Last 24 Hour Vital Signs Date Time Temp Pulse Resp B/P Pulse Ox O2 Delivery O2 Flow Rate FiO2 01/20/17 09:38 93 18 100 01/20/17 08:00 103 01/20/17 08:00 98.4 104 17 97/49 91 T-piece 100 01/20/17 08:00 15.0 100 01/20/17 07:29 101 22 92 T-piece 8.0 35 01/20/17 07:16 92 T-piece 8.0 35 01/20/17 07:16 35 01/20/17 07:16 T-piece 8.0 35 01/20/17 07:16 105 22 92 01/20/17 05:37 109 124/75 01/20/17 04:16 111 01/20/17 04:00 15.0 100 01/20/17 04:00 97.6 79 18 120/68 98 Room Air 01/20/17 01:22 94 T-piece 8.0 35 01/20/17 01:22 T-piece 8.0 35 01/20/17 00:00 8.0 35 01/20/17 00:00 97.8 105 20 122/65 97 T-piece 35 01/20/17 00:00 97.3 106 20 147/72 94 Room Air 01/19/17 23:48 105 01/19/17 23:15 103 28 96 T-piece 8.0 35 01/19/17 23:04 35 01/19/17 23:04 107 29 94 T-piece 8.0 35 01/19/17 20:00 97.2 100 20 118/65 98 T-piece 35 01/19/17 20:00 8.0 35 01/19/17 20:00 97.2 100 20 118/65 97 Room Air 01/19/17 19:39 96 01/19/17 19:24 T-piece 8.0 35 01/19/17 19:24 97 T-piece 8.0 35 01/19/17 17:31 T-piece 8.0 35 01/19/17 17:30 T-piece 8.0 35 01/19/17 17:28 110 132/72 01/19/17 16:00 8.0 35 01/19/17 16:00 97.0 107 24 132/75 98 T-piece 01/19/17 16:00 107 01/19/17 13:03 97 T-piece 8.0 35 01/19/17 13:03 T-piece 8.0 35 01/19/17 12:00 97.2 108 24 115/57 95 T-piece 01/19/17 12:00 8.0 35 01/19/17 12:00 110 Height (Feet): 4 Height (Inches): 9.00 Weight (Pounds): 85 HEENT: status post trach Respiratory/Chest: lungs clear Cardiovascular: normal rate, regular rhythm, no gallop/murmur Abdomen: soft, non tender, other - GT Extremities: no edema Laboratory Tests Test 01/20/17 08:46 Arterial Blood pH 6.992 (7.350-7.450) Arterial Blood Partial Pressure CO2 128.3 mmHg (35.0-45.0) *H Arterial Blood Partial Pressure O2 64.9 mmHg (75.0-100.0) L Arterial Blood HCO3 30.4 mmol/L (22.0-26.0) H Arterial Blood Oxygen Saturation 86.7 % (92.0-98.0) L Arterial Blood Base Excess -3.31 Jose Test Positive SHELLEY JOHNSON Jan 20, 2017 10:54"
[2017-01-20] MEDS ORDERED: Amikacin Rx to dose MISC PRN (11:00)
[2017-01-20 11:08] LABS: ABG BASE EXCESS -0.4; ABG PCO2 36.4 mmHg (35.0-45.0)
[2017-01-20 11:09] LABS: ABG ALLEN TEST POSITIVE
[2017-01-20] MEDS ORDERED: D5NS 1000ml IV ONE (11:16)
[2017-01-20 11:17] LABS: MEAN CORPUSCULAR HEMOGLOBIN 29.9 PG (27.0-31.0); MEAN CORPUSCULAR HGB CONC 31.3 G/DL (32.0-36.0); MEAN CORPUSCULAR VOLUME 95 FL (80-99); MEAN PLATELET VOLUME 6.1 FL (6.5-10.1); RED CELL DISTRIBUTION WIDTH 16.9 % (11.6-14.8)
[2017-01-20 11:23] LABS: PLATELET COUNT 1011 K/UL (150-450); WHITE BLOOD COUNT 27.8 K/UL (4.8-10.8)
[2017-01-20 11:42] LABS: ALANINE AMINOTRANSFERASE 16 U/L (3-33); ALBUMIN/GLOBULIN RATIO 0.6 (1.0-2.7); ANION GAP 9 (5-15); ASPARTATE AMINO TRANSFERASE 10 U/L (5-40); CALCIUM 8.9 mg/dL (8.6-10.2); CARBON DIOXIDE 26 mEQ/L (20-30); CHLORIDE 106 mEQ/L (98-107); CREATININE 0.5 mg/dL (0.5-0.9); HEMOLYSIS 0; SODIUM 141 mEQ/L (135-145); TOTAL PROTEIN 5.2 g/dL (6.6-8.7)
[2017-01-20 12:00] VITALS: BP 95/44
[2017-01-20 12:00] LABS: ANISOCYTOSIS 1+; BAND NEUTROPHILS % (MANUAL) 5 % (0-8); BASOPHILS % (MANUAL) 0 % (0-2); EOSINOPHILS % (MANUAL) 0 % (0-3); HYPOCHROMASIA 1+; LYMPHOCYTES % (MANUAL) 6 % (20-45); NEUTROPHILS % (MANUAL) 77 % (45-75); PLATELET ESTIMATE INCREASED; PLATELET MORPHOLOGY NORMAL; TOTAL CELLS COUNTED 100
[2017-01-20] MEDS: Amikacin 500 MG in NS 55 ML IV SCH (12:39)
[2017-01-20] MEDS: Acetaminophen 650mg/20.3ml GT PRN (12:40)
[2017-01-20 16:00] VITALS: BP 101/51
[2017-01-20 20:00] VITALS: BP 92/49
[2017-01-21] VITALS: BP 100/51
[2017-01-21 04:00] VITALS: BP 102/48
[2017-01-21] MEDS: Atenolol 25mg tab GT SCH ×2 (06:00→17:24)
[2017-01-21 08:00] VITALS: BP 123/64
--- NOTE | 2017-01-21 08:22 | Infectious Diseases Prog Note ---
Assessment/Plan Assessment/Plan A; C. difficile colitis UTI Chronic respiratory failure Anemia Encephalopathy DAHIANA colonization MRSA colonization P; continue PO Vancomycin,Amikacin & doxycycline will f/u cultures Subjective ROS Limited/Unobtainable: Yes Constitutional: Reports: fever, other - low grade Allergies: Coded Allergies: NO KNOWN DRUG ALLERGIES (Verified Allergy, Unknown, 12/02/16) Objective Vital Signs Last 24 Hour Vital Signs Date Time Temp Pulse Resp B/P Pulse Ox O2 Delivery O2 Flow Rate FiO2 01/21/17 07:49 35 01/21/17 06:00 92 98/48 01/21/17 05:18 92 18 35 01/21/17 04:00 35 01/21/17 04:00 98.9 94 18 102/48 98 Mechanical Ventilator 35 01/21/17 04:00 95 01/21/17 03:07 88 18 35 01/21/17 01:20 90 18 35 01/21/17 00:00 35 01/21/17 00:00 98.6 94 20 100/51 98 Mechanical Ventilator 35 01/20/17 23:50 94 01/20/17 23:28 91 18 35 01/20/17 21:25 89 18 35 01/20/17 20:00 50 01/20/17 20:00 98.2 92 19 92/49 98 Mechanical Ventilator 50 01/20/17 19:17 93 01/20/17 19:14 92 21 50 01/20/17 18:52 100.4 01/20/17 17:18 108 18 50 01/20/17 17:08 105 113/56 01/20/17 16:00 50 01/20/17 16:00 50 01/20/17 16:00 105 01/20/17 16:00 100.3 106 19 101/51 98 Mechanical Ventilator 50 01/20/17 14:40 105 18 50 01/20/17 13:19 109 18 50 01/20/17 13:10 99.8 01/20/17 12:00 15.0 100 01/20/17 12:00 100.6 108 18 95/44 96 Mechanical Ventilator 50 01/20/17 12:00 106 01/20/17 11:12 75 18 50 01/20/17 09:38 93 18 100 Height (Feet): 4 Height (Inches): 9.00 Weight (Pounds): 85 General Appearance: cachetic HEENT: status post trach Respiratory/Chest: lungs clear, other - on ventilator Cardiovascular: normal rate Abdomen: other - GT feeding, rectal tube Extremities: no edema Neurologic/Psychiatric: unresponsiveness Laboratory Tests Test 01/20/17 08:46 01/20/17 09:45 01/20/17 11:00 01/21/17 00:30 Arterial Blood pH 6.992 (7.350-7.450) 7.431 (7.350-7.450) Arterial Blood Partial Pressure CO2 128.3 mmHg (35.0-45.0) *H 36.4 mmHg (35.0-45.0) Arterial Blood Partial Pressure O2 64.9 mmHg (75.0-100.0) L 391.5 mmHg (75.0-100.0) H Arterial Blood HCO3 30.4 mmol/L (22.0-26.0) H 23.7 mmol/L (22.0-26.0) Arterial Blood Oxygen Saturation 86.7 % (92.0-98.0) L 99.4 % (92.0-98.0) H Arterial Blood Base Excess -3.31 -0.4 Jose Test Positive Positive White Blood Count 27.8 K/UL (4.8-10.8) *H Red Blood Count 3.20 M/UL (4.20-5.40) L Hemoglobin 9.6 G/DL (12.0-16.0) L Hematocrit 30.6 % (37.0-47.0) L Mean Corpuscular Volume 95 FL (80-99) Mean Corpuscular Hemoglobin 29.9 PG (27.0-31.0) Mean Corpuscular Hemoglobin Concent 31.3 G/DL (32.0-36.0) L Red Cell Distribution Width 16.9 % (11.6-14.8) H Platelet Count 1011 K/UL (150-450) *H Mean Platelet Volume 6.1 FL (6.5-10.1) L Neutrophils (%) (Auto) % (45.0-75.0) Lymphocytes (%) (Auto) % (20.0-45.0) Monocytes (%) (Auto) % (1.0-10.0) Eosinophils (%) (Auto) % (0.0-3.0) Basophils (%) (Auto) % (0.0-2.0) Differential Total Cells Counted 100 Neutrophils % (Manual) 77 % (45-75) H Lymphocytes % (Manual) 6 % (20-45) L Monocytes % (Manual) 12 % (1-10) H Eosinophils % (Manual) 0 % (0-3) Basophils % (Manual) 0 % (0-2) Band Neutrophils 5 % (0-8) Platelet Estimate Increased H Platelet Morphology Normal Hypochromasia 1+ Anisocytosis 1+ Sodium Level 141 mEQ/L (135-145) Potassium Level 5.0 mEQ/L (3.4-4.9) H Chloride Level 106 mEQ/L (98-107) Carbon Dioxide Level 26 mEQ/L (20-30) Anion Gap 9 (5-15) Blood Urea Nitrogen 18 mg/dL (7-23) Creatinine 0.5 mg/dL (0.5-0.9) Estimat Glomerular Filtration Rate mL/min (>60) Glucose Level 188 mg/dL (74-106) H Calcium Level 8.9 mg/dL (8.6-10.2) Total Bilirubin < 0.2 mg/dL (0.0-1.2) Aspartate Amino Transf (AST/SGOT) 10 U/L (5-40) Alanine Aminotransferase (ALT/SGPT) 16 U/L (3-33) Alkaline Phosphatase 156 U/L (35-104) H Total Protein 5.2 g/dL (6.6-8.7) L Albumin 2.1 g/dL (3.5-5.2) L Globulin 3.1 g/dL Albumin/Globulin Ratio 0.6 (1.0-2.7) L Random Amikacin Level 8.2 ug/mL Current Medications Medications (Trade) Dose Ordered Sig/Bernadette Route PRN Reason Start Time Stop Time Status Last Admin Dose Admin Acetaminophen (Tylenol) 650 mg Q4H PRN GT Mild Pain/Temp > 100.5 01/18/17 01:45 02/17/17 01:44 01/20/17 12:40 Amikacin Protocol (Amikacin pharmacy to dose) 1 ea DAILY PRN MISC . 01/20/17 11:00 02/19/17 10:59 Amikacin Sulfate/ Sodium Chloride (Amikin/Sodium Chloride) 57 ml @ 110 mls/hr Q24H IV 01/20/17 12:00 01/27/17 11:59 01/20/17 12:39 Atenolol (Tenormin) 25 mg BID@0600,1800 GT 01/17/17 06:00 02/16/17 05:59 01/20/17 17:08 Doxycycline Monohydrate 100 mg 100 mg EVERY 12 HOURS ORAL 01/20/17 12:00 01/27/17 11:59 01/20/17 20:28 Ondansetron HCl (Zofran) 4 mg Q6H PRN IVP Nausea & Vomiting 01/16/17 14:00 02/15/17 13:59 Vancomycin HCl (Vancomycin) 125 mg FOUR TIMES A DAY GT 01/18/17 13:00 01/25/17 12:59 01/20/17 20:28 NHUNG COLEY Jan 21, 2017 08:22
[2017-01-21] MEDS: Vancomycin oral 125mg/2.5ml GT SCH ×4 (08:24→21:02)
--- NOTE | 2017-01-21 09:16 | General Progress Note ---
Assessment/Plan Problem List: (1) Chronic respiratory failure ICD Codes: J96.10 - Chronic respiratory failure, unspecified whether with hypoxia or hypercapnia SNOMED: 28862381 Qualifiers: Qualified Codes: J96.10 - Chronic respiratory failure, unspecified whether with hypoxia or hypercapnia (2) UTI (urinary tract infection) ICD Codes: N39.0 - Urinary tract infection, site not specified SNOMED: 81402942 Qualifiers: Qualified Codes: N39.0 - Urinary tract infection, site not specified (3) Sepsis ICD Codes: A41.9 - Sepsis, unspecified organism SNOMED: 80545405 Qualifiers: Qualified Codes: A41.9 - Sepsis, unspecified organism (4) Anemia ICD Codes: D64.9 - Anemia, unspecified SNOMED: 669942690 Qualifiers: Qualified Codes: D64.9 - Anemia, unspecified Status: stable, progressing Assessment/Plan vent check cxr monitor abg abx per id resp care gt feeds dc ivf Subjective ROS Limited/Unobtainable: No Constitutional: Reports: malaise, weakness HEENT: Reports: no symptoms Cardiovascular: Reports: no symptoms Respiratory: Reports: shortness of breath Gastrointestinal/Abdominal: Reports: difficulty swallowing Genitourinary: Reports: no symptoms Neurologic/Psychiatric: Reports: no symptoms Endocrine: Reports: no symptoms Hematologic/Lymphatic: Reports: no symptoms Allergies: Coded Allergies: NO KNOWN DRUG ALLERGIES (Verified Allergy, Unknown, 12/02/16) All Systems: reviewed and negative except above Subjective placed on bipap due to hypercapnea. better now. alert. follows simple commands. Objective Last 24 Hour Vital Signs Date Time Temp Pulse Resp B/P Pulse Ox O2 Delivery O2 Flow Rate FiO2 01/21/17 09:00 98 20 35 01/21/17 07:49 35 01/21/17 07:05 97 18 35 01/21/17 06:00 92 98/48 01/21/17 05:18 92 18 35 01/21/17 04:00 35 01/21/17 04:00 98.9 94 18 102/48 98 Mechanical Ventilator 35 01/21/17 04:00 95 01/21/17 03:07 88 18 35 01/21/17 01:20 90 18 35 01/21/17 00:00 35 01/21/17 00:00 98.6 94 20 100/51 98 Mechanical Ventilator 35 01/20/17 23:50 94 01/20/17 23:28 91 18 35 01/20/17 21:25 89 18 35 01/20/17 20:00 50 01/20/17 20:00 98.2 92 19 92/49 98 Mechanical Ventilator 50 01/20/17 19:17 93 01/20/17 19:14 92 21 50 01/20/17 18:52 100.4 01/20/17 17:18 108 18 50 01/20/17 17:08 105 113/56 01/20/17 16:00 50 01/20/17 16:00 50 01/20/17 16:00 105 01/20/17 16:00 100.3 106 19 101/51 98 Mechanical Ventilator 50 01/20/17 14:40 105 18 50 01/20/17 13:19 109 18 50 01/20/17 13:10 99.8 01/20/17 12:00 15.0 100 01/20/17 12:00 100.6 108 18 95/44 96 Mechanical Ventilator 50 01/20/17 12:00 106 01/20/17 11:12 75 18 50 01/20/17 09:38 93 18 100 Intake and Output 01/20/17 01/21/17 19:00 07:00 Intake Total 732 ml 710 ml Output Total 820 ml 800 ml Balance -88 ml -90 ml Free Water 100 ml IV Total 57 ml Tube Feeding 600 ml 550 ml Other 75 ml 60 ml Output Urine Total 820 ml 800 ml # Voids 1 4 # Bowel Movements 20 40 Laboratory Tests 01/20/17 09:45: White Blood Count 27.8*H, Red Blood Count 3.20L, Hemoglobin 9.6L, Hematocrit 30.6L, Mean Corpuscular Volume 95, Mean Corpuscular Hemoglobin 29.9, Mean Corpuscular Hemoglobin Concent 31.3L, Red Cell Distribution Width 16.9H, Platelet Count 1011*H, Mean Platelet Volume 6.1L, Neutrophils (%) (Auto) , Lymphocytes (%) (Auto) , Monocytes (%) (Auto) , Eosinophils (%) (Auto) , Basophils (%) (Auto) , Differential Total Cells Counted 100, Neutrophils % ( Manual) 77H, Lymphocytes % (Manual) 6L, Monocytes % (Manual) 12H, Eosinophils % (Manual) 0, Basophils % (Manual) 0, Band Neutrophils 5, Platelet Estimate IncreasedH, Platelet Morphology Normal, Hypochromasia 1+, Anisocytosis 1+, Sodium Level 141, Potassium Level 5.0H, Chloride Level 106, Carbon Dioxide Level 26, Anion Gap 9, Blood Urea Nitrogen 18, Creatinine 0.5, Estimat Glomerular Filtration Rate , Glucose Level 188H, Calcium Level 8.9, Total Bilirubin < 0.2, Aspartate Amino Transf (AST/SGOT) 10, Alanine Aminotransferase (ALT/SGPT) 16, Alkaline Phosphatase 156H, Total Protein 5.2L, Albumin 2.1L, Globulin 3.1, Albumin/Globulin Ratio 0.6L 01/20/17 11:00: Arterial Blood pH 7.431, Arterial Blood Partial Pressure CO2 36.4, Arterial Blood Partial Pressure O2 391.5H, Arterial Blood HCO3 23.7, Arterial Blood Oxygen Saturation 99.4H, Arterial Blood Base Excess -0.4, Jose Test Positive 01/21/17 00:30: Random Amikacin Level 8.2 Height (Feet): 4 Height (Inches): 9.00 Weight (Pounds): 85 Objective General Appearance: confused, cachetic, thin Neck: supple Cardiovascular: normal peripheral pulses, normal rate, regular rhythm Respiratory/Chest: no accessory muscle use, rhonchi - bilaterally Abdomen: normal bowel sounds, non tender, soft, no organomegaly Edema: no edema noted Arm (L), no edema noted Arm (R), no edema noted Leg (L), no edema noted Leg (R), no edema noted Pedal (L), no edema noted Pedal (R), no edema noted Generalized CHANELLE MUÑOZ Jan 21, 2017 09:16
[2017-01-21] MEDS ORDERED: Tubing IV Secondary IV ONE (11:02)
[2017-01-21] MEDS ORDERED: NS 275ml ONE (11:02)
[2017-01-21 12:00] VITALS: BP 115/57
[2017-01-21] MEDS: Amikacin 500 MG in NS 55 ML IV SCH (12:05)
[2017-01-21 16:00] VITALS: BP 114/57
[2017-01-21 20:00] VITALS: BP 119/56
[2017-01-22] VITALS: BP 103/50
[2017-01-22 04:00] VITALS: BP 103/53
[2017-01-22] MEDS: Atenolol 25mg tab GT SCH ×2 (05:22→17:30)
[2017-01-22 06:12] LABS: MEAN CORPUSCULAR HEMOGLOBIN 31.1 PG (27.0-31.0); MEAN CORPUSCULAR HGB CONC 33.9 G/DL (32.0-36.0); MEAN CORPUSCULAR VOLUME 92 FL (80-99); PLATELET COUNT 800 K/UL (150-450); RED CELL DISTRIBUTION WIDTH 15.8 % (11.6-14.8); WHITE BLOOD COUNT 13.5 K/UL (4.8-10.8)
--- NOTE | 2017-01-22 07:56 | General Progress Note ---
Assessment/Plan Problem List: (1) Chronic respiratory failure ICD Codes: J96.10 - Chronic respiratory failure, unspecified whether with hypoxia or hypercapnia SNOMED: 54758010 Qualifiers: Qualified Codes: J96.10 - Chronic respiratory failure, unspecified whether with hypoxia or hypercapnia (2) UTI (urinary tract infection) ICD Codes: N39.0 - Urinary tract infection, site not specified SNOMED: 40507619 Qualifiers: Qualified Codes: N39.0 - Urinary tract infection, site not specified (3) Sepsis ICD Codes: A41.9 - Sepsis, unspecified organism SNOMED: 33290288 Qualifiers: Qualified Codes: A41.9 - Sepsis, unspecified organism (4) Anemia ICD Codes: D64.9 - Anemia, unspecified SNOMED: 147819432 Qualifiers: Qualified Codes: D64.9 - Anemia, unspecified Status: stable Assessment/Plan vent supprot resp rx check cxr monitor abg abx per id resp care gt feeds dc ivf Subjective ROS Limited/Unobtainable: Yes Constitutional: Reports: malaise, weakness HEENT: Reports: no symptoms Cardiovascular: Reports: no symptoms Respiratory: Reports: shortness of breath, sputum Gastrointestinal/Abdominal: Reports: difficulty swallowing Genitourinary: Reports: no symptoms Neurologic/Psychiatric: Reports: pre-existing deficit Endocrine: Reports: no symptoms Hematologic/Lymphatic: Reports: anemia Allergies: Coded Allergies: NO KNOWN DRUG ALLERGIES (Verified Allergy, Unknown, 12/02/16) All Systems: reviewed and negative except above Subjective on the vent. alert. ID noted. WBC improving. on feeds Objective Last 24 Hour Vital Signs Date Time Temp Pulse Resp B/P Pulse Ox O2 Delivery O2 Flow Rate FiO2 01/22/17 07:04 92 18 35 01/22/17 05:22 74 107/52 01/22/17 05:18 102 18 35 01/22/17 04:00 35 01/22/17 04:00 91 01/22/17 04:00 98.8 94 18 103/53 98 Mechanical Ventilator 35 86 01/22/17 03:23 94 20 35 01/22/17 01:05 92 18 35 01/22/17 00:00 35 01/22/17 00:00 99.6 86 18 103/50 99 Mechanical Ventilator 35 86 01/21/17 23:36 95 01/21/17 23:09 98 18 35 7/23/17 20:49 93 21 35 01/21/17 20:00 99.2 91 18 119/56 98 Mechanical Ventilator 35 91 01/21/17 20:00 96 01/21/17 19:56 35 01/21/17 19:42 94 18 35 01/21/17 17:24 98 114/57 01/21/17 17:01 97 18 35 01/21/17 16:00 88 01/21/17 16:00 98.2 98 18 114/57 99 Mechanical Ventilator 35 98 01/21/17 16:00 35 01/21/17 16:00 100 01/21/17 15:15 98 18 35 01/21/17 13:04 98 19 35 01/21/17 12:00 98.0 98 26 115/57 97 Mechanical Ventilator 35 98 01/21/17 12:00 35 01/21/17 11:26 98 01/21/17 11:02 95 21 35 01/21/17 09:00 98 20 35 01/21/17 08:00 98.4 99 18 123/64 97 Mechanical Ventilator 35 Intake and Output 01/21/17 01/22/17 19:00 07:00 Intake Total 670 ml 410 ml Output Total 1049 ml 350 ml Balance -379 ml 60 ml Free Water 120 ml 60 ml Tube Feeding 550 ml 350 ml Output Urine Total 799 ml 150 ml Stool Total 250 ml Other 200 ml Laboratory Tests 01/22/17 05:40: White Blood Count 13.5H, Red Blood Count 2.80L, Hemoglobin 8.7L, Hematocrit 25.8L, Mean Corpuscular Volume 92, Mean Corpuscular Hemoglobin 31.1H, Mean Corpuscular Hemoglobin Concent 33.9, Red Cell Distribution Width 15.8H, Platelet Count 800H, Mean Platelet Volume 6.0L, Neutrophils (%) (Auto) , Lymphocytes (%) (Auto) , Monocytes (%) (Auto) , Eosinophils (%) (Auto) , Basophils (%) (Auto) , Neutrophils % (Manual) [Pending], Lymphocytes % (Manual) [Pending], Platelet Estimate [Pending], Platelet Morphology [Pending] Height (Feet): 4 Height (Inches): 9.00 Weight (Pounds): 85 Objective General Appearance: confused, cachetic, thin Neck: supple Cardiovascular: normal peripheral pulses, normal rate, regular rhythm Respiratory/Chest: no accessory muscle use, rhonchi - bilaterally Abdomen: normal bowel sounds, non tender, soft, no organomegaly Edema: no edema noted Arm (L), no edema noted Arm (R), no edema noted Leg (L), no edema noted Leg (R), no edema noted Pedal (L), no edema noted Pedal (R), no edema noted Generalized CHANELLE MUÑOZ Jan 22, 2017 07:56
[2017-01-22 08:00] VITALS: BP 100/62
[2017-01-22] MEDS: Vancomycin oral 125mg/2.5ml GT SCH ×3 (08:44→17:31)
[2017-01-22 08:53] LABS: ANISOCYTOSIS 1+; BAND NEUTROPHILS % (MANUAL) 7 % (0-8); BASOPHILS % (MANUAL) 0 % (0-2); EOSINOPHILS % (MANUAL) 0 % (0-3); LYMPHOCYTES % (MANUAL) 7 % (20-45); NEUTROPHILS % (MANUAL) 79 % (45-75); NUCLEATED RED BLOOD CELLS 1 /100 WBC; PLATELET ESTIMATE INCREASED; PLATELET MORPHOLOGY NORMAL; TOTAL CELLS COUNTED 100
[2017-01-22 08:54] LABS: HYPOCHROMASIA 1+
--- NOTE | 2017-01-22 09:14 | Diagnostic Imaging Report ---
Indication: COPD, shortness of breath Technique: XRAY CHEST 1 V Comparison:01/15/2017 Findings: The patient is severely rotated. The heart is probably enlarged. A tracheostomy remains. There are is pulmonary vascular redistribution, increased from prior exam. Opacification of both lung bases is noted with blunting of the right costal phrenic angle. There is indistinctness of the vessels. No other gross change. Impression: Cardiomegaly with congestive heart failure. This is significantly worse than on the previous study. Right pleural effusion and probable left pleural effusion. Probable early pulmonary edema. Critical value communication: The patient's nurse on 3 W. was notified of these findings by phone at 11:55 AM 01/20/2017
--- NOTE | 2017-01-22 11:51 | Infectious Diseases Prog Note ---
"Assessment/Plan Assessment/Plan antibiotics : vancomycin GT, iv amikacin, doxycycline A 1. c.diff colitis 2, leucocytosis improving 3. respiratory failure s/p tracheostomy 4. SDH 5. MRSA | pseudomonas UTI 6. pseudomonas pneumonia P 1. continue GT vancomycin 2. continue iv amikacin, doxycycline 3. will follow up cultures Subjective ROS Limited/Unobtainable: Yes Allergies: Coded Allergies: NO KNOWN DRUG ALLERGIES (Verified Allergy, Unknown, 12/02/16) Objective Vital Signs Last 24 Hour Vital Signs Date Time Temp Pulse Resp B/P Pulse Ox O2 Delivery O2 Flow Rate FiO2 01/22/17 10:32 91 18 35 01/22/17 09:19 89 18 35 01/22/17 08:18 91 01/22/17 08:00 97.7 94 18 100/62 98 Mechanical Ventilator 35 01/22/17 08:00 35 01/22/17 07:04 92 18 35 01/22/17 05:22 74 107/52 01/22/17 05:18 102 18 35 01/22/17 04:00 35 01/22/17 04:00 91 01/22/17 04:00 98.8 94 18 103/53 98 Mechanical Ventilator 35 86 01/22/17 03:23 94 20 35 01/22/17 01:05 92 18 35 01/22/17 00:00 35 01/22/17 00:00 99.6 86 18 103/50 99 Mechanical Ventilator 35 86 01/21/17 23:36 95 01/21/17 23:09 98 18 35 01/21/17 20:49 93 21 35 01/21/17 20:00 99.2 91 18 119/56 98 Mechanical Ventilator 35 91 01/21/17 20:00 96 01/21/17 19:56 35 01/21/17 19:42 94 18 35 01/21/17 17:24 98 114/57 01/21/17 17:01 97 18 35 01/21/17 16:00 88 01/21/17 16:00 98.2 98 18 114/57 99 Mechanical Ventilator 35 98 01/21/17 16:00 35 01/21/17 16:00 100 01/21/17 15:15 98 18 35 01/21/17 13:04 98 19 35 01/21/17 12:00 98.0 98 26 115/57 97 Mechanical Ventilator 35 98 01/21/17 12:00 35 Height (Feet): 4 Height (Inches): 9.00 Weight (Pounds): 85 HEENT: status post trach Respiratory/Chest: lungs clear Cardiovascular: normal rate, regular rhythm, no gallop/murmur Abdomen: soft, non tender, other - GT Extremities: other - + edema Laboratory Tests Test 01/22/17 05:40 White Blood Count 13.5 K/UL (4.8-10.8) H Red Blood Count 2.80 M/UL (4.20-5.40) L Hemoglobin 8.7 G/DL (12.0-16.0) L Hematocrit 25.8 % (37.0-47.0) L Mean Corpuscular Volume 92 FL (80-99) Mean Corpuscular Hemoglobin 31.1 PG (27.0-31.0) H Mean Corpuscular Hemoglobin Concent 33.9 G/DL (32.0-36.0) Red Cell Distribution Width 15.8 % (11.6-14.8) H Platelet Count 800 K/UL (150-450) H Mean Platelet Volume 6.0 FL (6.5-10.1) L Neutrophils (%) (Auto) % (45.0-75.0) Lymphocytes (%) (Auto) % (20.0-45.0) Monocytes (%) (Auto) % (1.0-10.0) Eosinophils (%) (Auto) % (0.0-3.0) Basophils (%) (Auto) % (0.0-2.0) Differential Total Cells Counted 100 Neutrophils % (Manual) 79 % (45-75) H Lymphocytes % (Manual) 7 % (20-45) L Monocytes % (Manual) 7 % (1-10) Eosinophils % (Manual) 0 % (0-3) Basophils % (Manual) 0 % (0-2) Band Neutrophils 7 % (0-8) Nucleated Red Blood Cells 1 /100 WBC Platelet Estimate Increased H Platelet Morphology Normal Hypochromasia 1+ Anisocytosis 1+ SHELLEY JOHNSON Jan 22, 2017 11:51"
[2017-01-22 12:00] VITALS: BP 118/55
[2017-01-22] MEDS: Amikacin 500 MG in NS 55 ML IV SCH (12:05)
--- NOTE | 2017-01-22 12:15 | Diagnostic Imaging Report ---
Indication: Shortness of breath Technique: One view of the chest Comparison: 01/20/2017 Findings: Tracheostomy, bilateral interstitial alveolar infiltrates versus edema appear unchanged. There may be slightly decreased pleural fluid bilaterally Impression: Possibly decreased bilateral pleural fluid. Otherwise, little change manager 2 days, findings as noted
[2017-01-22 16:00] VITALS: BP 104/52
[2017-01-22 17:30] VITALS: BP 104/52
[2017-01-22] MEDS: Acetaminophen 650mg/20.3ml GT PRN (17:31)
[2017-01-22] MEDS ORDERED: NS 275ml ONE (20:19)
--- NOTE | 2017-01-23 12:18 | Discharge Summary ---
Discharge Summary Hospital Course Date of Admission Jan 15, 2017 at 22:36 Date of Discharge Jan 22, 2017 at 20:20 Admitting Diagnosis sepsis HPI Vika Mckeon is a 81 year old female who was admitted on Jan 15, 2017 at 22: 36 for Sepsis Hospital Course dc summary #[id number] Discharge Condition Upon Discharge: stable Discharge Disposition Patient was discharged to SNF Discharge Diagnoses: Discharge Instructions Discharge Instructions Special Instructions I have been assigned to complete a D/C Summary on this account. I was not involved in the patient management Malou Raymond NP ([place]) Jan 23, 2017 12:18
--- NOTE | 2017-01-23 15:16 | Discharge Summary 2 SIG ---
DATE OF ADMISSION: 01/15/2017 DATE OF DISCHARGE: 01/22/2017 REASON FOR ADMISSION: 81-year-old female with chronic respiratory failure, tracheostomy status, hypertension, dysphagia, G-tube, and chronic encephalopathy, was sent from the care home [facility] for abnormal laboratory work for evaluation. On presentation, initially the patient was afebrile, tachycardic with heart rate of 120, and blood pressure- 96/51. Hemoglobin -7.6 and hematocrit- 22.9. Lactic acid -2.3. Troponin negative. Urinalysis grossly positive for UTI. Chest x-ray demonstrated bilateral interstitial infiltrates. EKG revealed sinus tachycardia. Leukocytosis with WBC - 29.5. The patient started on fluid resuscitation and empiric antibiotic, pancultured, and transferred to [facility] for further management. ADMITTING DIAGNOSES: 1. Sepsis. 2. Urinary tract infection. 3. Pneumonia. 4. Anemia. 5. Chronic respiratory failure. 6. Tracheostomy status. HOSPITAL STAY: The patient was admitted to [facility]. The patient was on IV fluids and empiric antibiotics. ID consulted. Urine culture positive for Pseudomonas MDR and MRSA. The patient with recurrent complicated urinary tract infections. Blood culture negative. Sputum culture revealed Pseudomonas. Stool for C. difficile was positive. Wound culture was positive for Morganella and KPC. ID specialist optimized antibiotic regimen. The patient was followed up with ABG. The patient with chronic respiratory status and tracheostomy, but during admission required placement on ventilator. Repeated ABG were stable. Venous duplex of bilateral lower extremities was negative. Strict aspiration precautions were maintained. G-tube site care provided. The patient was able to tolerate G-tube feeding. Blood pressure was managed with beta-augustine and was stable. The patient had a sacral decubitus, un-stageable present on admission. Wound care provided as per wound care nurse recommendation. On the day of discharge, leukocytosis down from 29.5 to 13.5. The patient remained afebrile. No signs of respiratory distress. Stable renal parameters and electrolytes. Hemoglobin -8.7 and hematocrit- 25.8. Followup chest x-ray revealed decreased interstitial infiltrates. The patient was stable for transfer to subacute facility. DISCHARGE DIAGNOSES: 1. Sepsis 2. Complicated urinary tract infection with Pseudomonas multidrug resistant/ Methicillin-resistant Staphylococcus aureus. 3. Pneumonia with Pseudomonas. 4. Clostridium difficile colitis. 5. Chronic respiratory failure, acute on chronic (requiring placement on ventilator). 6. Tracheostomy status. 7. Chronic encephalopathy. 8. Sacral decubitus, un-stageable, present on admission. 9. Dysphagia, G-tube. DISCHARGE MEDICATIONS: list of medications sent to admitting facility DISCHARGE INSTRUCTIONS: The patient was discharged to subacute care home facility. FOLLOWUP: Follow up with medical doctor and pyrotechnist at the facility. Santos Catalan M.D. I have been assigned to dictate discharge summary on this account and I was not involved in the patient's management. Malou JhaveriNyu Langone HealthGracy N.PBetty DR: EDOUARD JOB#: [id number] CC: RADHA
[2017-01-24] MEDS ORDERED: Amikacin 500 MG in NS 55 ML IV SCH ×2
== END 2017-01-22 20:20 | DRG 720 ==
LOC: EDBD 21:10 → EMR 22:27 → 2W 22:36 → EDBEDREQ 01-16 02:43
PROC: 30233N1 Transfusion of Nonautologous Red Blood Cells into Peripheral Vein, Percutaneous Approach (ICD-10-PCS; 2017-01-16)
PROC: 5A1945Z Respiratory Ventilation, 24-96 Consecutive Hours (ICD-10-PCS; principal; 2017-01-20)
DX: A41.9 Sepsis, unspecified organism (principal); J96.20 Acute and chronic respiratory failure, unspecified whether with hypoxia or hypercapnia; G93.40 Encephalopathy, unspecified; J15.1 Pneumonia due to Pseudomonas; L89.159 Pressure ulcer of sacral region, unspecified stage; A04.7 Enterocolitis due to Clostridium difficile; N39.0 Urinary tract infection, site not specified; D64.9 Anemia, unspecified; I69.20 Unspecified sequelae of other nontraumatic intracranial hemorrhage; B96.5 Pseudomonas (aeruginosa) (mallei) (pseudomallei) as the cause of diseases classified elsewhere; Z16.24 Resistance to multiple antibiotics; R13.10 Dysphagia, unspecified; E87.1 Hypo-osmolality and hyponatremia; E03.9 Hypothyroidism, unspecified; Z43.0 Encounter for attention to tracheostomy; Z43.1 Encounter for attention to gastrostomy; K21.9 Gastro-esophageal reflux disease without esophagitis; Z22.322 Carrier or suspected carrier of Methicillin resistant Staphylococcus aureus; Z66 Do not resuscitate
CPT/HCPCS: 36415; 36600; 71010; 80048; 80053; 80150; 81003; 82550; 82553; 82803; 83605; 84484; 85007; 85025; 85610; 85730; 86850; 86900; 86901; 86920; 87040; 87070; 87081; 87086; 87181; 87205; 87324; 93005; 93970; 94002; 94003; 94640; 94760